=== PATIENT | female | born 1980 | race Caucasian/White ===

== ENCOUNTER 2023-01-16 02:21 | Day surgery (SDC) | payer OTHER, SELFPAY ==
[2023-01-09 11:56] VITALS: BMI 29.0
--- NOTE | 2023-01-09 12:00 | PC.NURSE ---
Report to the Outpatient Waiting Room, entrance under the green pavilion located off [facility], at time 1200 on date 01/16/23. Planned Procedure Time: 1400. Time changes happen often and if your time is changed the preop area will call you the afternoon before. - You and your visitor will be asked to self-screen and do not enter if you have any COVID symptoms. - A mask is optional within the hospital at this time. Patients may have clear liquids (water, carbonated beverages, clear teas, apple juice) until 3 hours prior to surgery with a maximum of 20 ounces. - No food from midnight until time of surgery Take the following medications with a SIP of water the morning of surgery: LEVOTHYROXINE, PROPRANOLOL DO NOT STOP ANY OF YOUR OTHER PRESCRIPTION MEDICATIONS PRIOR TO SURGERY ?EXCEPT THE FOLLOWING Medications to discontinue per physician: N/A Date to take last dose: N/A Please no make-up, nail mexican, hairspray, perfume, deodorant, or body powder the day of surgery. No jewelry (including any body piercings) or valuables the day of surgery, leave them at home. Please take a shower or bath the night before, or the morning of, surgery with an antibacterial soap. Wear comfortable, loose fitting clothing. - Jewelry must be removed prior to entering the operating room. Rings and piercings that are not removed may be cut off. - The hospital will not accept responsibility for valuables. - Please leave all valuables, including medications, at home the day of surgery. If you are going home after surgery, a licensed reefer truck driver must drive you home. - NO public transportation without another adult if you receive anesthesia. - We recommend that an adult stay with you for 24 hours following discharge. - We also recommend that you do not drive, make important decision, drink alcoholic beverages, or take any drugs that were not prescribed by your health care provider for at least 24 hours after your discharge time. Follow any additional instructions given to you from your surgeon. If you or anyone in your household have experienced Covid symptoms in the past week, please notify your surgeon or the nurse liaison at the phone number below for possible testing. Telephone instructions given to PT - CLARE ARRIETA and asked if any additional questions and then verbalized understanding. Patient advised to call surgeon office or pre surgery nurse liaison [phone] if any additional questions.
[2023-01-16 11:55] VITALS: BMI 29.1
[2023-01-16 12:05] VITALS: BP 129/79; PULSE 74; RESP 18; TEMP 36.6; O2SAT 100
[2023-01-16] MEDS: LACTATED RINGERS 1,000 ML 30 ML IV CONT (13:20)
[2023-01-16] MEDS: ACETAMINOPHEN 500 MG TABLET 1000 MG PO (13:26)
--- NOTE | 2023-01-16 13:28 | P.PNAN_ITS ---
Anes - Initial Pre Proc Eval Procedure: Operation Date: 01/16/23 14:00 Proposed Procedures p Hysteroscopy Dilation and Curettage Genoveva Endometrial Ablation - Yemi Bell MD Date/Time: 01/16/23 13:28 Surgeon: Yemi Bell MD Pre Op Diagnosis: excessive bleeding Patient Data Age: 42 Gender: F Height: 1.85 m Weight: 99.8 kg Allergies Allergy/AdvReac Type Severity Reaction Status Date / Time No Known Allergies Allergy Mild Verified 01/16/23 13:02 Home Medications Medication Instructions Recorded Confirmed Type levothyroxine 150 mcg tablet 150 mcg PO DAILY 01/09/23 01/09/23 History propranolol 60 mg capsule,24 60 mg PO DAILY 01/09/23 01/09/23 History hr,extended release Patient hx anesthesia problems: none Family hx anesthesia problems: none Results Review: All pre-operative results and documents have been reviewed as part of the pre- operative evaluation. PMFSH Past Medical History Medical History (Updated 01/16/23 @ 13:29 by Fransico Henderson DO) Hypothyroidism Surgical History Surgical History (Updated 01/16/23 @ 13:29 by Fransico Henderson DO) History of appendectomy History of tubal ligation Social History Social History Smoking status: Never smoker Alcohol intake: current Alcohol use details: 1/YEAR Substance use: never Substance use type: does not use Living arrangements: with family Spiritual care concerns: No Anes - Eval Final PreProcedure Day of Procedure 01/16/23 13:28 Patient weight: overweight Heart: regular rate and rhythm Lungs: clear to auscultation Airway: Mallampati scale class II Neurological: alert and oriented Last oral intake: >/= 8 hours ASA classification: II Emergent: no Anesthetic plan: proceed Anesthesia type and monitoring: general GIVS and standard monitoring Results Review: All pre-operative results and documents have been reviewed as part of the pre- operative evaluation. Informed Consent: The patient's anesthetic plan and its attendant risks and benefits were discussed with the patient/family/POA. Questions were solicited and answers provided to the satisfaction of the patient/family/POA.
--- NOTE | 2023-01-16 13:59 | PM.IMHP ---
H&P: HPI History of Present Illness Date/Time: 01/16/23 13:59 Chief Complaint: Heavy periods Narrative: 42 y/o who has had a tubal ligation. She has very heavy, painful, prolonged menses. Ultrasound exam shows an endometrial complex that is 1.4 cm thick. She is interested in surgical management of her problem. Review of Systems Review of Systems: All systems reviewed & are unremarkable except as noted in HPI and below PMFSH Past Medical History Medical History (Updated 01/16/23 @ 14:01 by Yemi Bell MD) Hypothyroidism Surgical History Surgical History History of appendectomy History of delivery History of tubal ligation Social History Social History Smoking status: Never smoker Alcohol intake: current Alcohol use details: 1/YEAR Substance use: never Substance use type: does not use Living arrangements: with family Spiritual care concerns: No Meds Home Medications and Allergies Home Medications Medication Instructions Recorded Confirmed Type levothyroxine 150 mcg tablet 150 mcg PO DAILY 01/09/23 01/09/23 History propranolol 60 mg capsule,24 60 mg PO DAILY 01/09/23 01/09/23 History hr,extended release Allergies Allergy/AdvReac Type Severity Reaction Status Date / Time No Known Allergies Allergy Mild Verified 01/16/23 13:02 Exam Const: Orientation/consciousness: patient oriented x3 Other: Well-developed, well-nourished female in no acute distress. Neck: Thyroid: thyroid normal Lymphatic: no lymphadenopathy noted (in neck, axilla or inguinal nodes) Resp: Effort & Inspection: normal respiratory effort Auscultation: clear to auscultation bilaterally Cardio: Rate: regular rate Rhythm: regular rhythm Heart sounds: S1 normal heart sound present and S2 normal heart sound present GI: Other: ABD: Soft, nontender, nondistended. No guarding or rebound tenderness. No hepatosplenomegaly. : General: Yes no CVA tenderness Other: External genitalia: normal female hair distribution, without lesion. Urethral meatus: no lesion, non prolapsed. Bladder: no mass, nontender Vagina: well-estrogenized, without lesion or discharge. No cystocele or rectocele. Cervix: no lesion or discharge. Uterus: small, anteverted, freely mobile, nontender Adnexa: no mass or tenderness. Anus/perineum: no lesions, nontender Back/Spine/Pelvis: Back: no CVA tenderness Skin: General skin exam: normal color and no rashes or lesions noted Neuro: General: patient oriented x3 Extrem: Other: Extremities: nontender with no edema Psych: Mental Status: mental status grossly normal Affect: normal affect Assessment and Plan Assessment and plan (1) Menometrorrhagia: Code(s): N92.1 - Excessive and frequent menstruation with irregular cycle Status: Acute Assessment and Plan: A: Menometrorrhagia with dysmenorrhea. P: We reviewed medical as well as surgical management options, and she prefers the latter. Specifically, I have offered her a hysteroscopy with dilation and sharp curettage and endometrial ablation. She understands risks of surgery to include risks of anesthesia, risks of pain, infection, bleeding, blood products, thromboembolic phenomena and damage to adjacent structures such as bowel, bladder, ureters, blood vessels and nerves. She understands all these risks and elects to proceed with surgery. (2) Dysmenorrhea: Code(s): N94.6 - Dysmenorrhea, unspecified Status: Acute
--- NOTE | 2023-01-16 14:03 | WPDHPUPDATE1 ---
History and Physical Update Update Date/Time: 01/16/23 14:03 History and Physical has been reviewed, including an updated exam of the patient. There are NO changes in the patient's condition. Risks, benefits, and alternatives have been discussed and questions answered. Patient agrees to proceed with procedure.
[2023-01-16] MEDS: LIDOCAINE HCL 1% LOCAL INJ 10 ML VIAL INFILTRATE (14:25)
[2023-01-16 14:48] VITALS: BP 104/67; PULSE 78; RESP 14; O2SAT 98
--- NOTE | 2023-01-16 14:55 | P.OP_ITS ---
Procedure Note - Detailed Date of Procedure 01/16/23 Pre-op Diagnosis Menometrorrhagia Dysmenorrhea Post-op Diagnosis Same Procedure Performed Hysteroscopy Dilation and sharp curettage Endometrial ablation Surgeon Yemi Bell MD Anesthesia MAC and Local (1% lidocaine) Findings Endometrial cavity unremarkable. Both tubal ostia seen. Description of Procedure The patient was taken to the operating room where she was prepared and draped in the usual sterile fashion in the dorsal lithotomy position. The bladder was drained with a red rubber catheter. A sterile speculum was placed into the vagina. The anterior lip of the cervix was grasped with single-tooth tenaculum. Ten mL of 1% lidocaine was administered in a paracervical block. The cervix was then gently dilated using Hegar dilators until a 7 mm dilator could be passed. Hysteroscopy was performed using sterile saline as a distention medium. Findings are as noted above. Sharp curettage was then performed, and endometrial curettings were collected on a Telfa pad and passed off to be sent t o pathology. Finally, the the Genoveva device was advanced and endometrial ablation commenced without difficulty. The device was withdrawn and a second look was taken using the hysteroscope. Excellent coverage of the endometrial cavity was noted. The tenaculum was removed. Hemostasis was excellent. Sponge, lap, needle and instrument counts were correct. The patient was awakened and taken to the recovery room in stable condition. I was present and scrubbed through the entire procedure. Estimated Blood Loss 10 Drains No Packing No Pathology Yes (Endometrial curettings) Complications None Condition Stable Disposition PACU
[2023-01-16 15:15] VITALS: BP 110/74; PULSE 54
[2023-01-16] MEDS: oxyCODONE HCL (*CRX) 5 MG TAB IR PO (15:27)
[2023-01-16 15:45] VITALS: BP 107/69; PULSE 56
== END 2023-01-16 16:00 | disposition home or self-care (01) ==
PROVIDERS: PCP Family Medicine; Visit Provider Obstetrics & Gynecology
PROC: 0U5B8ZZ Destruction of Endometrium, Via Natural or Artificial Opening Endoscopic (ICD-10-PCS; CPT 58563; principal; 2023-01-16 14:00)
DX: N92.0 Excessive and frequent menstruation with regular cycle (principal); E03.9 Hypothyroidism, unspecified
CPT/HCPCS: 58563; 88305; A9270; J2250; J2405; J2704; J3010; J7120

== ENCOUNTER → 2023-01-22 16:10 | Outpatient (CLI) | payer OTHER, SELFPAY ==
--- NOTE | ~2023-01-22 | MM_ITS ---
EXAMINATION: MM screening luis carlos BI w bar HISTORY: Screening mammogram TECHNIQUE: Craniocaudal and mediolateral oblique 3-D tomosynthesis images were obtained and synthetic 2-D images were generated. CAD analysis was submitted and interpreted. COMPARISON: No prior mammogram is available for comparison at this institution. BREAST PARENCHYMAL COMPOSITION:The breasts are heterogeneously dense, which may obscure small masses. FINDINGS: Small lymph node present in the posterior left breast. No suspicious mass, calcification, o r architectural distortion are identified in either breast to suggest malignancy. IMPRESSION: No mammographic evidence of malignancy. Recommend routine screening mammography in one year. BI-RADS Category 2: Benign finding(s). Reviewed, dictated and finalized at location . 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
== END ==
PROVIDERS: PCP Obstetrics & Gynecology; Visit Provider Obstetrics & Gynecology
DX: Z12.31 Encounter for screening mammogram for malignant neoplasm of breast (principal)
CPT/HCPCS: 77063; 77067

== ENCOUNTER 2024-01-28 16:08 | Outpatient (CLI) | payer OTHER, SELFPAY ==
--- NOTE | ~2024-01-28 | MM_ITS ---
EXAMINATION: MM screening luis carlos BI w bar HISTORY: Screening mammogram TECHNIQUE: Craniocaudal and mediolateral oblique 3-D tomosynthesis images were obtained and synthetic 2-D images were generated. CAD analysis was submitted and interpreted. COMPARISON: 01/22/2023 BREAST PARENCHYMAL COMPOSITION:Not Dense. There are scattered areas of fibroglandular density. FINDINGS: No suspicious mass, calcification, or architectural distortion are identified in either gaurang ast to suggest malignancy. There has been no suspicious interval change. IMPRESSION: No mammographic evidence of malignancy. Recommend routine screening mammography in one year. BI-RADS Category 1: Negative Reviewed, dictated and finalized at location . 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
== END 2024-01-28 16:09 | disposition home or self-care (01) ==
LOC: MICIMG 16:11
PROVIDERS: PCP Physician Assistant; Visit Provider Obstetrics & Gynecology
DX: Z12.31 Encounter for screening mammogram for malignant neoplasm of breast (principal)
CPT/HCPCS: 77063; 77067

== ENCOUNTER 2024-02-12 11:21 | Outpatient (CLI) | payer OTHER, SELFPAY ==
[2024-02-12 11:48] LABS: Basophils Absolute Auto 0.1 K/mm3 (0.0-0.1); Eosinophils Absolute Auto 0.4 K/mm3 (0-0.3); Eosinophils Percent Auto 5.1 % (0-4.4); Hemoglobin 14.2 g/dL (12.0-15.0); Immature Granulocyte Absolute 0.01 K/mm3 (0.00-0.031); Immature Granulocyte Percent A 0.1 % (0-0.5); Lymphocytes Absolute Auto 2.73 K/mm3 (0.9-3.2); Lymphocytes Percent Auto 33.5 % (18.3-44.2); Mean Corpuscular HGB Conc 32.3 g/dl (32-36); Mean Corpuscular Hemoglobin 30.2 pg (26-34); Mean Corpuscular Volume 93.6 fl (80-100); Mean Platelet Volume 9.5 fl (7.4-10.4); Monocytes Absolute Auto 0.8 K/mm3 (0.1-0.6); Monocytes Percent Auto 9.8 % (2.6-8.5); Neutrophils Absolute Auto 4.1 K/mm3 (1.3-6.7); Neutrophils Percent Auto 50.5 % (45.5-73.1); Platelet Count Result 493 k/mm3 (150-375); Red Cell Distribution Width 13.3 % (11.5-14.5); White Blood Count 8.2 K/mm3 (4.5-10.0)
[2024-02-12 15:08] LABS: Erythrocyte Sedimentation Rate 12 mm/hr (0-20)
[2024-02-12 16:35] LABS: Iron 153 ug/dL (37-170)
[2024-02-12 16:46] LABS: Percent Iron Saturation 46 % (20-50)
[2024-02-12 16:48] LABS: Alanine Aminotransferase 21 U/L (6-35); Albumin Level 4.7 g/dL (3.5-5.1); Alkaline Phosphatase 85 U/L (38-126); Anion Gap 9 mmol/L (4-12); Aspartate Amino Transferase 26 U/L (14-36); Bilirubin,Total 0.7 mg/dL (0.2-1.3); Blood Urea Nitrogen 9 mg/dL (7-17); CRP 0.5 mg/dL (<1.0); Calcium 9.3 mg/dL (8.4-10.2); Carbon Dioxide 25 mmol/L (22-30); Chloride 105 mmol/L (98-107); Estimated Glomerular Filt Rate > 60; Glucose 87 mg/dL (65-110); Potassium 4.8 mmol/L (3.4-5.0); Sodium 139 mmol/L (137-145)
== END 2024-02-12 11:22 | disposition home or self-care (01) ==
PROVIDERS: PCP Physician Assistant; Visit Provider Internal Medicine Hematology & Oncology
DX: D75.838 Other thrombocytosis (principal); D50.9 Iron deficiency anemia, unspecified
CPT/HCPCS: 36415; 80053; 82728; 83540; 83550; 85025; 85652; 86140

== ENCOUNTER 2024-05-28 10:37 | Outpatient (CLI) | payer OTHER, SELFPAY ==
[2024-05-28 10:49] LABS: Hematocrit 42.3 % (37.0-47.0); Hemoglobin 13.9 g/dL (12.0-15.0); Mean Corpuscular HGB Conc 32.9 g/dl (32-36); Mean Corpuscular Hemoglobin 30.7 pg (26-34); Mean Corpuscular Volume 93.4 fl (80-100); Mean Platelet Volume 10.2 fl (7.4-10.4); Platelet Count Result 469 k/mm3 (150-375); Red Blood Count 4.53 M/mm3 (4.2-5.4); Red Cell Distribution Width 13.5 % (11.5-14.5); White Blood Count 9.2 K/mm3 (4.5-10.0)
--- OUTSIDE RECORDS SUMMARY | 2024-05-28 12:21 | XMS_ITS | Encounter Summary ---
Author Organization [facility] Address [address] [place] [address] Care Team Providers Care Graduate Advisor Name Role Phone Unavailable Primary Care Provider Unavailabl e Encounter Details Date Type Department Care Team (Late st Contact Info) Description 05/26/2024 External Device Data ST[place] ABSTRACTION Provider, Abstract NO ADDRESS ON FILE Social History Tobacco Use Types Packs/Day Years Used Date Smoking Tobacco: Never Alcohol Use Standard Drinks/Week Comments Yes 0 (1 standard drink = 0.6 oz pur e alcohol) Occasionally Comments Unknown Sex and Gender Information Value Date Recorded Sex Assigned at Not on file Legal Sex Female 12:11 PM CDT Gender Identity Not on file Sexual Orientation Not on file documented as of this encounter Plan of Treatment Upcoming Encounters Date Type Department Care Team (Late st Contact Info) Description 09/30/2024 11:00 AM CDT Office Visit [facility] Oncology and Hematology - [place] [address] [place] [address] [facility] [address] [place] [address] Arian Hdz MD [address] [facility] [address] [place] [address] documented as of this encounter Visit Diagnoses Not on filedocumented in this encounter
--- OUTSIDE RECORDS SUMMARY | 2024-05-28 12:21 | XMS_ITS | Clinical Summary ---
Author Organization [facility] Address [address] [place] [address] Care Team Providers Care Presiding Steward Name Role Phone Unavailable Primary Care Provider Unavailabl e Source Comments [facility],non-owned Affiliates and Associated Physician Practices is amultiple site organization consisting of ambulatory clinics and hospital sitesin [place], [place], [place]. This disclosure is being madepursuant to the Care Everywhere program and may not contain all information available regarding this patient. Last updated 17.[facility] [employer] Dog Allergies No known active allergies Medications * Be aware that medications may not be up to date on this document. Alwaysverify current medications with the patient. Medication Sig Dispensed Refills Start Date End Date Status levothyroxine (SYNTHROID) 150 MCG tablet Take 150 mcg by mouth once daily 04/26/2020 Active Probiotic Product (PROBIOTIC DAILY PO) Acti ve Aspirin-Acetaminophe n-Caffeine (EXCEDRIN PO) Active omeprazole (PRILOSEC) 20 MG capsuleIndications:G astroesophageal reflux disease without esophagitis TAKE 1 CAPSULE BY MOUTH DAILY BEFORE BREAKFAST 90 capsule 3 10/18/2020 Active Active Problems Problem Noted Date Diagnosed Date Abdominal pain, epigastric 02/18/2010 Abdominal pain, generalized 02/18/2010 Family History Medical History Relation Name Comments Migraine Brother Cancer - Breast Paternal Grandmother Migraine Sister Relation Name Status Comments Brother Alive Paternal Grandmother Alive Sister Alive Social History Tobacco Use Types Packs/Day Years Used Date Smoking Tobacco: Never Smokeless Tobacco: Never Alcohol Use Standard Drinks/Week Comments Yes 0 (1 standard drink = 0.6 oz pur e alcohol) socially Sex and Gender Information Value Date Recorded Sex Assigned at Not on file Gender Identity Not on file Sexual Orientation Not on file Last Filed Vital Signs Vital Sign Reading Time Taken Comments Blood Pressure 123/80 07/13/2020 9:09 AM CDT Pulse 71 07/13/2020 9:09 AM CDT Temperature 36.5 C (97.7 F) 07/13/2020 9:09 AM CDT Respiratory Rate 13 06/08/2020 11:20 AM CDT Oxygen Saturation 100% 07/13/2020 9:09 AM CDT Inhaled Oxygen Concentration - - Weight 97.2 kg (214 lb 3.2 oz) 07/13/2020 9:09 A M CDT Height 185.4 cm (6' 1 ) 06/08/2020 9:05 AM CDT Body Mass Index 28.26 06/08/2020 9:05 AM CDT Plan of Treatment Health Maintenance Due Date Last Done Comments LIPID TESTING 1980 MAMMOGRAM 1980 PAP SMEAR 1980 HIV SCREENING 11/15/1994 HEPATITIS C SCREENING 11/11/1997 DTAP/TDAP/TD VACCINES (1 - Tdap) 11/15/1998 HEPATITIS B VACCINE (1 of 3 - 19+ 3-dose series) 11/15/1998 SCREENING FOR DIABETES 07/13/2020 02/18/2010 COVID-19 VACCINE (1 - 2023-2 5 season) 2023 INFLUENZA VACCINE (#1) 2023 DEPRESSION SCREENING 03/18/2024 ZOSTER VACCINE (1 of 2) 11/15/2029 HIB VACCINE Aged Out No longer eligi ble based on patient's age to complete this topic HPV VACCINE Aged Out No longer eligi ble based on patient's age to complete this topic MENINGOCOCCAL (Group B) VACC INE SHARED DECISION-MAKING Aged Out No longer eligibl e based on patient's age to complete this topic MENINGOCOCCAL GROUPS A/C/Y/W VACCINE Aged Out No longer eligible b ased on patient's age to complete this topic PNEUMOCOCCAL VACCINE Aged Out No long er eligible based on patient's age to complete this topic Procedures Procedure Name Priority Date/Time Associated Diagnosis Comments COMPREHENSIVE METABOLIC PANEL STAT 02/18/2010 8:10 PM REED OR WIND INSTRUMENT REPAIRER from Last 3 Months or Most Recently Relevant to Health Maintenance Results * (ABNORMAL) COMPREHENSIVE METABOLIC PANEL (02/18/2010 8:10 PM REED OR WIND INSTRUMENT REPAIRER) Glucose 99. 65 - 105 mg/dL [facility] BUN 6.(L) 7 - 18 mg/dL [facility] Creatinine .66 0.50 - 1.05 mg/dL [facility] BUN/Creatinine Ratio 8.7 [facility] Sodium 135.(L) 137 - 145 mmol/L [facility] Potassium 3.5(L) 3.6 - 5.0 mmol/L [facility] Chloride 103. 98 - 107 mmol/L [facility] CO2 22. 22 - 31 mmol/L [facility] Anion Gap 10. [facility] Calcium 8.7 8.4 - 10.6 mg/dL [facility] Alkaline Phosphatase 60. 38 - 126 U/L [facility] ALT 13. 7 - 56 U/L [facility] AST 24. 5 - 40 U/L [facility] Bilirubin Total < .1(L) 0.2 - 1.3 mg/dL [facility] Protein Total 7.7 6.3 - 8.2 gm/dL [facility] Albumin 4.2 3.9 - 5.0 gm/dL [facility] eGFR by MDRD >60 SEE BELOW ml/min/1.7 3 m2 [facility] Comment: >60 Normal Chronic Disease <60 Renal Failure <15 BLOOD SPECIMEN / Unknown 02/18/2010 8:10 PM REED OR WIND INSTRUMENT REPAIRER 02/18/2010 8:16 PM REED OR WIND INSTRUMENT REPAIRER Narrative [facility] - 02/18/2010 8:41 PM REED OR WIND INSTRUMENT REPAIRER Perform for patients with UPPER abd* Fernie Josie Solares MD LAB - CHEMISTRY [facility] [address] [place] [address] from Last 3 Months or Most Recently Relevant to Health Maintenance Clare Stephenson Personal/Family Self 1980 [address] [phone] CLARE STEPHENSON Personal/Family Spouse [address] [phone]
--- OUTSIDE RECORDS SUMMARY | 2024-05-28 12:21 | XMS_ITS | Clinical Summary ---
Author Organization [facility] Address [address] [place] [address] Care Team Providers Care Compensation Director Name Role Phone Ta Piedra MD Unavailable [phone] Leila Tam MD Primary Care Provider Yemi Bell MD Unavailable [phone] Allergies Active Allergy Reactions Criticality Noted Date Comments Tolterodine Other (See comments) Low 10/22/2022 Severe dry eye Medications mirabegron ER (MYRBETRIQ) 25 mg tablet extended release 24 hrIndications:OA B (overactive bladder) Take 1 tablet (25 mg total) by mouth daily 90 tablet 3 3 Active Additional Information Patient not taking.Reported on 04/10/2024 propranolol LA (INDERAL LA) 60 mg 24 hr capsuleIndicatio ns:Chronic daily headache,Migrain e without aura and without status migrainosus, not intractable Take 1 capsule (60 mg total) by mouth daily 90 capsule 4 3 Active Additional Information Patient not taking.Reported on 04/10/2024 levothyroxine (SYNTHROID) 150 mcg tabletIndication s:Hypothyroidism (acquired) TAKE 1 TABLET( 150 MCG TOTAL) BY MOUTH SCREED OPERATOR BEFORE BREAKFAST 90 tablet 1 4 Active Active Problems Problem Noted Date Diagnosed Date Family hx of colon cancer 10/23/2023 OAB (overactive bladder) 10/23/2023 Assessment & Plan (10/23/2023 3:07 PM CDT): Improved with Myrbetriq. Continue Class 1 obesity due to exces s calories without serious comorbidity with body mass index (BMI) of 30.0 to 30.9 in adult 10/23/2023 Assessment & Plan (10/23/2023 3:08 PM CDT): Intermittent with borderline BMI between overweight and mild obesity. Needs slight improvement. Encouraged healthy diet, exercise, weight loss. Chronic daily headache 10/22/2022 Overview (10/22/2022): Improved with propranolol started last year. Refill given. Discussed option for abortive if needed for migraines but she defers. Monitor Assessment & Plan (10/23/2023 3:07 PM CDT): Chronic. Controlled with propranolol. Continue. She noted when attempted to wean off of the headaches flared Sensorineural hearing loss ( SNHL) of right ear with restricted hearing of left ear 05/19/2019 Overview (10/02/2021): Mild bilaterally. Prior ENT evaluation Assessment & Plan (05/25/2019 9:53 AM CDT): Repeat audio here today shows right greater than left mild mixed hearing loss- predominantly sensorineural. Her stapedial reflexes were intact. I discussed with her that amplification will be her best solution for hearing improvement. She will follwoup with Dr. Piedra's office for a hearing aid consult. Hypothyroidism (acquired) 10/08/2016 Assessment & Plan (10/23/2023 3:07 PM CDT): Chronic. Clinically euthyroid. Continue levothyroxine. Check TSH and adjust as needed Encounters Date Type Department Care Team Description 04/10/2024 4:53 PM ARCHIVIST MILITARY HISTORY - 04/10/2024 11:59 PM ARCHIVIST MILITARY HISTORY Hospital Encounter [address] [address] Acute pharyngitis, unspecified etiology Discharge Disposition: Discharge to home or self care 04/10/2024 4:15 PM ARCHIVIST MILITARY HISTORY Office Visit [facility] at [address] [address] Geoff Hammond NP Acute pharyngitis, unspecified etiology (Primary Dx); Right ear pain from Last 3 Months Immunizations Immunization Administration Dates Next Due Influenza, Quadrivalent, Spl it, Preservative Free, Intramuscular 12/27/2018 Influenza, Trivalent, Preser vative Free, Intramuscular 01/07/2017,01/05/2016,12/30/2014 Influenza, Unspecified 03/18/2023(Deferr ed: Patient Refused),03/18/2022(Deferred: Patient Refused) Tdap 04/13/2016 Surgical History Surgery Date Site/Laterality Comments SECTION TUBAL LIGATION EYE SURGERY Bilateral PRK APPENDECTOMY 03/18/2018 - 03/17/2019 Medical History Medical History Date Comments Thyroid disease Crohn disease (HCC) Narcolepsy Chickenpox Family History Medical History Relation Name Comments Diabetes Brother Diabetes Father Colon cancer Mother Diabetes Mother Hypertension Mother Breast cancer Paternal Grandmother Diabetes Sister Relation Name Status Comments Brother Father Alive Mother Alive Paternal Grandmother Sister Social History Tobacco Use Types Packs/Day Years Used Date Smoking Tobacco: Never Smokeless Tobacco: Never Tobacco Cessation:Counseling Given: Not Answered Alcohol Use Standard Drinks/Week Comments Never 0 (1 standard drink = 0.6 oz pur e alcohol) AUDIT-C Answer Date Recorded Q1: How often do you have a drink containing alcohol? Never 10/23/2023 Q2: How many drinks containi ng alcohol do you have on a typical day when you are drinking? Patient does not drink Q3: How often do you have si x or more drinks on one occasion? Never 10/23/2023 PHQ-2 Answer Date Recorded PHQ-2 Total Score (If total score is 3 or more points, staff should administer the PHQ-9) 0 10/23/2023 Comments No Sex and Gender Information Value Date Recorded Sex Assigned at Not on file Legal Sex Female 6:19 PM ARCHIVIST MILITARY HISTORY Gender Identity Not on file Sexual Orientation Not on file Obstetrics History Last Filed Vital Signs Vital Sign Reading Time Taken Comments Blood Pressure 120/80 04/10/2024 4:17 PM ARCHIVIST MILITARY HISTORY Pulse 80 04/10/2024 4:17 PM ARCHIVIST MILITARY HISTORY Temperature 36.7 C (98.1 F) 04/10/2024 4:17 PM ARCHIVIST MILITARY HISTORY Respiratory Rate 18 04/10/2024 4:17 PM ARCHIVIST MILITARY HISTORY Oxygen Saturation 98% 04/10/2024 4:17 PM ARCHIVIST MILITARY HISTORY Inhaled Oxygen Concentration - - Weight 102.1 kg (225 lb) 04/10/2024 4:17 PM ARCHIVIST MILITARY HISTORY Height 185.4 cm (6' 1 ) 02/01/2024 8:54 AM ARCHIVIST MILITARY HISTORY Body Mass Index 29.69 02/01/2024 8:54 AM ARCHIVIST MILITARY HISTORY Plan of Treatment Health Maintenance Due Date Last Done Comments Breast Cancer Screening-Mammogram 1980 Cervical Cancer Screening 1980 Covid-19 Vaccine ( season) 2023 04/01/2021, 07/19/2020, 06/15/2020 Influenza Vaccine (#1) 2023 9, 01/07/2017, 01/05/2016, Additional history exists Depression Screening 10/22/2024 10/23/2023, 10/22/2022, 10/02/2021, Additional history exists Regular Well Visit/Exam 18-64 10/22/2024 10/23/2023, 10/22/2022, 10/02/2021 Colon Cancer Screening-Colonoscopy 06/09/2025 06/09/2020 DTaP/Tdap/Td Vaccine (2 - Td or Tdap) 04/13/2026 04/13/2016 Hepatitis B Screening Completed 10/24/2023 Hepatitis C Screening Completed 10/24/2023 HPV Vaccines Aged Out No longer eligi ble based on patient's age to complete this topic Pneumococcal vaccine <65 Aged Out No longer eligible based on patient's age to complete this topic Procedures Procedure Name Priority Date/Time Associated Diagnosis Comments THROAT CULTURE Routine 04/10/2024 4:53 PM ARCHIVIST MILITARY HISTORY Acute pharyngitis, unspecified etiology POCT RAPID STREP Routine 04/10/2024 4:42 PM ARCHIVIST MILITARY HISTORY Acute pharyngitis, unspecified etiology HEPATITIS C ANTIBODY Routine 10/24/2023 9:09 AM CDT Annual physical exam Encounter for hepatitis C screening test for low risk patient HM COLONOSCOPY Routine 06/09/2020 Routine physical examination from Last 3 Months or Most Recently Relevant to Health Maintenance Results * Throat culture Throat (04/10/2024 4:53 PM ARCHIVIST MILITARY HISTORY) [facility] Report Final Report: No growth of pathogens. Comment:Testing performed by : [facility], [address] [place]., [address] Throat 04/10/2024 4:53 PM ARCHIVIST MILITARY HISTORY 04/11/2024 1:55 AM ARCHIVIST MILITARY HISTORY Narrative DEYANIRA - 04/12/2024 7:11 AM ARCHIVIST MILITARY HISTORY Testing performed by [facility] Microbiology Laboratory ([phone]). us Geoff Hammond NP LAB MICROBIOLOGY - [facility] Final Result [facility] [address] [address] Department of Laboratories [place], [place] [id number] * POCT rapid strep A (04/10/2024 4:42 PM ARCHIVIST MILITARY HISTORY) [facility] Rapid Strep A, POC Negative Negative Swab 04/10/2024 4:42 PM ARCHIVIST MILITARY HISTORY us Geoff Hammond NP POINT OF CARE TEST ORDERABLES F inal Result * Hepatitis C antibody Blood (10/24/2023 9:09 AM CDT) [facility] Hep C Ab NON-REACTI VE NON-REACT CATHI [facility] Comment: HCV antibody was non-reactive. There is no laboratory evidence of HCV infection. In most cases, no further action is required. However, if recent HCV exposure is suspected, a test for HCV RNA (test code 19401) is suggested. For additional information please refer to http://education.PayDragon/faq/GNM17w2 (This link is being provided for informational/ educational purposes only.) Blood 10/24/2023 9:09 AM CDT 10/24/2023 9:10 AM CDT Narrative [facility] - 10/25/2023 7:48 AM CDT FASTING:YES FASTING: YES Leila Tam MD LAB MICROBIOLOGY - GEN ERAL ORDERABLES Final Result [facility] [address] [id number] * COLONOSCOPY (06/09/2020) Scribed Colonoscopy Abnormal Comment:see pathology and co lonoscopy reprot in [facility] Historical Provider HEALTH MAINTENANCE Final Result from Last 3 Months or Most Recently Relevant to Health Maintenance Insurance [facility] Care Teams Compensation Director Relationship Specialty Start Date End Date Leila Tam MD [address] [place], [place] [id number] PCP - General Family Practice 09/21/21 Ta Piedra MD [address] [place] [address] Referring Physician Otolaryngology 04/29/19 Yemi Bell MD [address] [address] Referring Physician Obstetrics and Gynecology 10/23/23
--- OUTSIDE RECORDS SUMMARY | 2024-05-28 12:21 | XMS_ITS | Referral Summary ---
Author Organization [facility] Address [address] [place] [address] Care Team Providers Care Ui Lead Developer Name Role Phone Unavailable Primary Care Provider Unavailabl e Source Comments [facility],non-owned Affiliates and Associated Physician Practices is amultiple site organization consisting of ambulatory clinics and hospital sitesin [place], [place], [place] and [place]. This disclosure is being madepursuant to the Care Everywhere program and may not contain all information available regarding this patient. Last updated 17.[facility] [email or web address] Allergies No known active allergies Medications * [...] pain, epigastric 02/18/2010 Abdominal pain, generalized 02/18/2010 Social History Tobacco Use Types Packs/Day Years [...] 06/08/2020 9:05 AM CDT Plan of Treatment Not on file Procedures Procedure Name Priority Date/Time Associated Diagnosis Comments COMPREHENSIVE METABOLIC PANEL STAT 02/18/2010 8:10 PM ENTRY LEVEL BUYER from Last 3 Months or Most Recently Relevant to Health Maintenance Results * (ABNORMAL) COMPREHENSIVE METABOLIC PANEL (02/18/2010 8:10 PM ENTRY LEVEL BUYER) Glucose 99. 65 - 105 mg/dL [facility] BUN 6.(L) 7 - 18 mg/dL [facility] Creatinine .66 0.50 - 1.05 mg/dL [facility] BUN/Creatinine Ratio 8.7 [facility] Sodium 135.(L) 137 - 145 mmol/L [facility] Potassium 3.5(L) 3.6 - 5.0 mmol/L [facility] Chloride 103. 98 - 107 mmol/L [facility] CO2 22. 22 - 31 mmol/L [facility] Anion Gap 10. [facility] Calcium 8.7 8.4 - 10.6 mg/dL [facility] Alkaline Phosphatase 60. 38 - 126 U/L [facility] ALT 13. 7 - 56 U/L [facility] AST 24. 5 - 40 U/L [facility] Bilirubin Total < .1(L) 0.2 - 1.3 mg/dL [facility] Protein Total 7.7 6.3 - 8.2 gm/dL [facility] Albumin 4.2 3.9 - 5.0 gm/dL [facility] eGFR by MDRD >60 SEE BELOW ml/min/1.7 3 m2 [facility] Comment: >60 Normal Chronic Disease <60 Renal Failure <15 BLOOD SPECIMEN / Unknown 02/18/2010 8:10 PM ENTRY LEVEL BUYER 02/18/2010 8:16 PM ENTRY LEVEL BUYER Narrative [facility] - 02/18/2010 8:41 PM ENTRY LEVEL BUYER Perform for patients with UPPER abd* Fernie Solares MD LAB - CHEMISTRY [place] [facility] [address] [place] [address] from Last 3 Months or Most Recently Relevant to Health Maintenance Clare Stephenson Personal/Family Self 1980 [address] [place] [address] CLARE STEPHENSON Personal/Family Spouse [address] [place] [address]
--- OUTSIDE RECORDS SUMMARY | 2024-05-28 12:21 | XMS_ITS | Encounter Summary ---
Author Organization [email or web address] Address [address] [place] [address] Care Team Providers Care Scratcher Tender Name Role Phone Unavailable Primary Care Provider [...] Description 09/30/2024 11:00 AM CDT Office Visit [facility] Oncology and Hematology - [place] [address] [place] [address] [facility] [address] [place] [address] Arian Hdz MD [address] [facility] [address] [place] [address] documented as of this encounter Visit Diagnoses Not on filedocumented in this encounter
--- OUTSIDE RECORDS SUMMARY | 2024-05-28 12:21 | XMS_ITS | Encounter Summary ---
Author Organization [facility] Address [address] [place] [place] [address] Care Team Providers Care Manager Technology Name Role Phone Unavailable Primary Care Provider Unavailabl e Reason for Visit * Reason Onset Date Comments Returned Call 06/29/2020 Encounter Details Date Type Department Care Team (Late st Contact Info) Description 06/29/2020 Telephone [facility] - GI [address] [place] [address], [place] [address] Arabella Castillo MD [address] [place] [address] [place] [address] Returned Call Social History Tobacco Use Types Packs/Day Years Used Date Smoking Tobacco: Never Smokeless Tobacco: Never Alcohol Use Standard Drinks/Week Comments Yes 0 (1 standard drink = 0.6 oz pur e alcohol) socially Sex and Gender Information Value Date Recorded Sex Assigned at Not on file Gender Identity Not on file Sexual Orientation Not on file documented as of this encounter Miscellaneous Notes * Telephone Encounter - Arabella Craig MD - 06/29/2020 5:06 PM CDT Called patient to review colonoscopy findings. Reviewed finding of mild ileitis on colonoscopy. She was told many years ago that she has Crohn's disease- but she has always been skeptical of the diagnosis because she did not have typical symptoms. We reviewed the differential diagnosis of mild ileitis. She does take Excedrin daily for headaches. We also discussed that her rectal bleeding is likely due to her hemorrhoids. She is quite symptomatic and colonoscopy revealed a large thrombosed external hemorrhoid. She has consultation with Dr. Petty 07/13. She will discuss the above information with her and consider colorectal surgery consult for her hemorrhoids. Patient voiced no further questions at this time. Arabella Craig MD Wound Specialist Internal Medicine Division of Gastroenterology and Hepatology documented in this encounter Plan of Treatment Not on file documented as of this encounter Visit Diagnoses Not on filedocumented in this encounter
--- OUTSIDE RECORDS SUMMARY | 2024-05-28 12:21 | XMS_ITS | Patient Health Summary ---
Author Organization [facility] Address [address] [place] [address] Care Team Providers Care Integration Architect Name Role Phone Unavailable Primary Care Provider Unavailabl e Note from [facility],non-owned Affiliates and Associated Physician Practices is amultiple site organization consisting of ambulatory clinics and hospital sitesin [place], [place], [place] and [place]. This disclosure is being madepursuant to the Care Everywhere program and may not contain all information available regarding this patient. Last updated 17.[facility] Allergies No known active allergies Medications * Be aware that medications may not be up to date on this document. Alwaysverify current medications with the patient. * levothyroxine (SYNTHROID) 150 MCG tablet(Started 04/26/2020) Take 150 mcg by mouth once daily * Probiotic Product (PROBIOTIC DAILY PO) * Mvrivqr-Lpxnrevxxwuup-Irabvcpm (EXCEDRIN PO) * omeprazole (PRILOSEC) 20 MG capsule(Started 10/18/2020) TAKE 1 CAPSULE BY MOUTH DAILY BEFORE BREAKFAST 3 refills by 10/18/2021 Active Problems Problem Noted Date Diagnosed Date [...] Mass Index 28.26 06/08/2020 9:05 AM CDT Procedures * PATHOLOGY TISSUE(Performed 06/08/2020) Performed for Crohn's disease of colon without complication (HCC) * MO COLONOSCOPY, DIAGNOSTIC(Performed 06/08/2020) Performed for Crohn's disease of colon without complication (HCC) * ENDOSCOPY, COLON, DIAGNOSTIC(Performed 06/08/2020) * HCG URINE QUALITATIVE - POCT (IP) INTERFACED(Performed 06/08/2020) * HCG URINE QUAL POCT NOTIFICATION(Performed 06/08/2020) Performed for Preop examination * CT ABDOMEN PELVIS W CONTRAST(Performed 02/18/2010) Performed for Abdominal pain, epigastric, Abdominal pain, generalized * HCG URINE QUALITATIVE - POINT OF CARE(Performed 02/18/2010) * LIPASE BLOOD(Performed 02/18/2010) * COMPREHENSIVE METABOLIC PANEL(Performed 02/18/2010) * CBC W AUTO DIFFERENTIAL(Performed 02/18/2010) * URINALYSIS REFLEX MICROSCOPIC REFLEX CULTURE(Performed 02/18/2010) Results * PATHOLOGY TISSUE (06/08/2020 10:26 AM CDT) Case Report Surgical Pathology Report Case: [id number] Authorizing Provider: Arabella Gillette MD Collected: 06/08/2020 10:26 AM Ordering Location: [facility] Received: 06/08/2020 11:34 AM Pathologist: Caryn Engle MD Specimens: A) - Colon, terminal illeum ulceration B) - Large Intestine, Right/Ascending Colon, right colon random bx C) - Large Intestine, Transverse Colon, Transverse - edemastous area bx D) - Large Intestine, Left/Descending Colon, left colon random bx E) - Large Intestine, Left/Descending Colon, descending poylp 06/09/2020 9:20 PM [facility] Final Diagnosis Small intestine, terminal ileum ulceration, biopsy (A): - Mild aphthous inflammation - No granulomas or dysplasia Large intestine, right colon random, biopsy (B): - Melanosis coli - No granulomas or dysplasia Large intestine, transverse edematous area, biopsy (C): - Melanosis coli - No granulomas or dysplasia Large intestine, left colon random, biopsy (D): - Melanosis coli - No granulomas or dysplasia Large intestine, descending polyp, biopsy (E): - Benign polypoid mucosa 06/09/2020 9:20 PM [facility] Microscopic Description and Comment Microscopic examination substantiates the final diagnosis. 06/09/2020 9:20 PM [facility] Clinical History The patient is a 39-year-old woman with Crohn's disease, previously in admission, who has abdominal pain and bloody stools. Operative procedure/findings: colonoscopy showed 3 aphthous ulcers in the terminal ileum and one 3 mm descending colon polyp. The entire examined colon was otherwise endoscopically normal. Non-bleeding external and internal hemorrhoids were noted. 06/09/2020 9:20 PM [facility] Gross Description The requisition and specimen(s) are labeled with the patient's name, Navya Stephenson. Received in formalin, specimen A , are 2 pink-munoz tissue fragments measuring 0.3 x 0.2 x 0.1 cm and 0.3 x 0.3 x 0.2 cm. The specimen is submitted in toto in cassette A1. Received in formalin, specimen B , are 3 yellow-munoz tissue fragments measuring 0.2-0.4 cm in greatest dimension and 0.6 x 0.4 x 0.1 cm in aggregate. The specimen is submitted in toto in cassette B1. Received in formalin, specimen C , are 2 pink-munoz tissue fragments measuring 0.3 x 0.2 x 0.1 cm in 0.5 x 0.2 x 0.1 cm. The specimen is submitted in toto in cassette C1. Received in formalin, specimen D , are 4 pink-munoz tissue fragments measuring 0.3-0.5 cm in greatest dimension and 0.5 x 0.5 x 0.1 cm in aggregate. The specimen is submitted in toto in cassette D1. Received in formalin, specimen E , is a pink-munoz tissue fragment measuring 0.2 x 0.2 x 0.1 cm. The specimen is submitted in toto in cassette E1. OW 06/09/2020 9:20 PM [facility] Disclaimer The performance characteristics of all immunohistochemical and indirect immunofluorescence stains (if any) cited in this report were determined by the Histopathology Laboratory of [facility]. Some of these tests were developed by our own laboratory and have not been cleared or approved by the US Food and Drug Administration. The FDA does not require this test to go through premarket FDA review. These tests are used for clinical purposes. They should not be regarded as investigational or for research. This laboratory is certified under the Clinical Laboratory Improvement Amendments (CLIA) as qualified to perform high complexity clinical laboratory testing. This case has been personally reviewed and interpreted by the attending (teaching) pathologist. 06/09/2020 9:20 PM [facility] Embedded Images 06/09/2020 9:20 PM [facility] Biopsy, NOS COLON PART / Unknown 06/08/2020 10:26 AM CDT 06/08/2020 11:34 AM CDT Comment:Pre-op diagnosis: Crohn's disease of colon without complication [K50.10] Biopsy, NOS (Large Intestine, Right/Ascending Colon) 06/08/2020 10:31 AM CDT 06/08/2020 11:34 AM CDT Comment:Pre-op diagnosis: Crohn's disease of colon without complication [K50.10] Biopsy, NOS (Large Intestine, Transverse Colon) 06/08/2020 10:37 AM CDT 06/08/2020 11:34 AM CDT Comment:Pre-op diagnosis: Crohn's disease of colon without complication [K50.10] Biopsy, NOS (Large Intestine, Left/Descending Colon) 06/08/2020 10:40 AM CDT 06/08/2020 11:34 AM CDT Comment:Pre-op diagnosis: Crohn's disease of colon without complication [K50.10] Biopsy, NOS (Large Intestine, Left/Descending Colon) 06/08/2020 10:44 AM CDT 06/08/2020 11:34 AM CDT Comment:Pre-op diagnosis: Crohn's disease of colon without complication [K50.10] Arabella Castillo MD LAB - PATHOLOGY/C YTOLOGY ORDERABLES Performing Organization Address City/State/[facility] Co de Phone Number [facility] [address] [phone] * ENDOSCOPY, COLON, DIAGNOSTIC (06/08/2020 10:00 AM CDT) Report Endoscopy POC Endoscopy Department Report _ Patient Name: Navya Stephenson Procedure Date: 06/08/2020 10:00 AM Date of : 1980 Classification: Outpatient Gender: Female Ethnicity: Not or Race: White _ Providers: Arabella Gillette MD, Kishan Gallardo (Fellow) Referring MD: Procedure: Colonoscopy Indications: Suspected Crohn's disease of the small bowel, Incidental abdominal pain and constipation noted. Currently not on Crohn's medical therapy. Medications: Monitored Anesthesia Care Description of Procedure: Pre-Anesthesia Assessment: - Prior to the procedure, a History and Physical was performed, and patient medications and allergies were reviewed. The patient's tolerance of previous anesthesia was also reviewed. The risks and benefits of the procedure and the sedation options and risks were discussed with the patient. All questions were answered, and informed consent was obtained. Prior Anticoagulants: The patient has taken no previous anticoagulant or antiplatelet agents. ASA Grade Assessment: II - A patient with mild systemic disease. After reviewing the risks and benefits, the patient was deemed in satisfactory condition to undergo the procedure. After I obtained informed consent, the scope was passed under direct vision. Throughout the procedure, the patient's blood pressure, pulse, and oxygen saturations were monitored continuously. The PCF-[id number] was introduced through the anus and advanced to the terminal ileum, with identification of the appendiceal orifice and IC valve. The colonoscopy was performed without difficulty. The patient tolerated the procedure well. The quality of the bowel preparation was evaluated using the BBPS ([place] Bowel Preparation Scale) with scores of: Right Colon = 2 (minor amount of residual staining, small fragments of stool and/or opaque liquid, but mucosa seen well), Transverse Colon = 2 (minor amount of residual staining, small fragments of stool and/or opaque liquid, but mucosa seen well) and Left Colon = 3 (entire mucosa seen well with no residual staining, small fragments of stool or opaque liquid). The total BBPS score equals 7. The quality of the bowel preparation was good. The terminal ileum, ileocecal valve, appendiceal orifice, and rectum were photographed. Findings: Hemorrhoids were found on perianal exam. One larger thrombosed hemorrhoid was noted. The colon (entire examined portion) appeared normal. Biopsies were taken with a cold forceps for histology from right and left colon. A 3 mm polyp was found in the descending colon. The polyp was sessile. The polyp was removed with a jumbo cold forceps. Resection and retrieval were complete. The terminal ileum contained three superficial non-bleeding aphthous ulcers near the opening to the TI. Examined the terminal ileum for about 15 cm proximally, which appeared to be normal otherwise. Biopsies were taken with a cold forceps for histology from the ulcers. Non-bleeding external and internal hemorrhoids were found during retroflexion. The hemorrhoids were large. Estimated Blood Loss: Estimated blood loss: none. Complications: No immediate complications. Impression: - External hemorrhoids found on perianal exam. - The entire examined colon is normal. Biopsied. - One 3 mm polyp in the descending colon, removed with a jumbo cold forceps. Resected and retrieved. - Three aphthous ulcers in the terminal ileum. Biopsied. - Non-bleeding external internal hemorrhoids. Recommendation: - Discharge patient to home (ambulatory). - Resume previous diet. - Continue present medications. - Depending on symptoms, would treat constipation. - Await pathology results. - Consultation in GI office as previously scheduled. - Will refer patient for colorectal surgery to assess for treatment of the hemorrhoids. Attending Participation: I was present and participated during the entire procedure, including non-roach portions. Procedure Code(s): --- Professional --- 31423, Colonoscopy, flexible; with biopsy, single or multiple Diagnosis Code(s): --- Professional --- K64.4, Residual hemorrhoidal skin tags K64.8, Other hemorrhoids K63.5, Polyp of colon K63.89, Other specified diseases of intestine CPT copyright 2019 [employer]. All rights reserved. The codes documented in this report are preliminary and upon pest control pilot review may be revised to meet current compliance requirements. ____ Arabella Gillette MD 06/08/2020 11:12:07 AM Note Initiated On: 06/08/2020 10:00 AM Number of Addenda: [id number] [place] [address] 06/08/2020 10:0 0 AM CDT Arabella Castillo MD GI [facility]ED[facility] * HCG URINE QUALITATIVE - POCT (IP) INTERFACED (06/08/2020 9:10 AM CDT) HCG Qual Urine Negative Negative 06/08/2020 9:17 AM CDT [facility] Urine URINE / Unknown 06/08/2020 9 :10 AM CDT 06/08/2020 9:17 AM CDT Arabella Castillo MD LAB - POINT OF CA RE ORDERABLES Performing Organization Address City/[facility]/ZIP Co de Phone Number [address] [phone], [facility] [phone] * HCG URINE QUAL POCT NOTIFICATION (06/08/2020 9:05 AM CDT) Comment Notification Label Only - See Separate Report 06/08/2020 10:30 AM CDT [facility] Urine URINE / Unknown 06/08/2020 9 :05 AM CDT 06/08/2020 9:05 AM CDT Arabella Castillo MD LAB - URINALYSIS ORDERABLES Performing Organization Address [facility] Co de Phone Number [address] [phone], [facility] [phone] * CT ABDOMEN AND PELVIS WITH IV CONTRAST (02/18/2010 10:43 PM [employer] SERVICE WORKER) Anatomical Region Laterality Modality Abdomen, Pelvis Computed Tomogra phy 02/19/2010 9:59 AM [employer] SERVICE WORKER Narrative 02/19/2010 9:59 AM [employer]ER CT abdomen and pelvis with oral and IV contrast on February 18, 2010 INDICATION: Abdominal pain A breast shield is used in this exam showing no defect in the liver. There is no apparent splenic tissue identified in the study. There is uniform enhancement of the pancreas without a mass is no retrocrural para-aortic adenopathy the contrast outline kidneys show smooth margins without obstructive findings. There are no intrarenal calculi the small bowel loops reveal no abnormal wall thickness or dilatation. Images of the pelvis reveal less than 30 mL of fluid in the cul-de-sac pelvic adenopathy is not present. The patient's appendix is visualized on image 75 and 74 in this series showing no inflammatory changes. SUMMARY: Apparent asplenia No inflammatory changes of the appendix. Procedure Note James Curran MD - 02/19/2010 CT abdomen and pelvis with oral and IV contrast on February 18, 2010 INDICATION: Abdominal pain A breast shield is used in this exam showing no defect in the liver. There is no apparent splenic tissue identified in the study. There is uniform enhancement of the pancreas without a mass is no retrocrural para-aortic adenopathy the contrast outline kidneys show smooth margins without obstructive findings. There are no intrarenal calculi the small bowel loops reveal no abnormal wall thickness or dilatation. Images of the pelvis reveal less than 30 mL of fluid in the cul-de-sac pelvic adenopathy is not present. The patient's appendix is visualized on image 75 and 74 in this series showing no inflammatory changes. SUMMARY: Apparent asplenia No inflammatory changes of the appendix. Raimundo Martin MD CT ORDERABLES * HCG URINE QUALITATIVE - POINT OF CARE (02/18/2010 8:13 PM [employer]LOOR SERVICE WORKER) HCG Qual Urine neg Negative [facility] POCT TESTING QC Verified yes Yes [facility] POC T TESTING Urine specimen (specimen) URINE / Unknown 02/18/2010 8:13 PM [employer] SERVICE WORKER Fernie Solares MD LAB - POINT OF CARE ORDERABLES [facility] POCT TESTING [address] [place] [address] * CBC W AUTO DIFFERENTIAL (02/18/2010 8:10 PM [employer] SERVICE WORKER) WBC 7.2 4.0 - 11.0 K/CUMM [facility] RBC 4.42 3.80 - 5.30 M/CUMM [facility] Hemoglobin 13.5 11.7 - 15.5 gm/dL [facility] Hematocrit 40.4 36 - 46 % [facility] MCV 91.4 80 - 99 fL [facility] MCH 30.5 26 - 34 pg [facility] MCHC 33.4 32 - 36 gm/dL [facility] RDW 12.9 11.5 - 14.5 % [facility] Platelet Count 363 150 - 400 K/CUMM [facility] Granulocytes % 53.9 43 - 70 % [facility] Lymphocytes % 35.1 22 - 41 % [facility] Monocytes % 9.8 2 - 13 % [facility] Eosinophils % 0.8 0 - 6 % [facility] Basophils % 0.4 0 - 2 % [facility] Granulocytes Absolute 3.9 1.7 - 7.7 [facility] Lymphocytes Absolute 2.5 1.0 - 3.0 [facility] Monocytes Absolute 0.7 0.2 - 1.0 [facility] Eosinophils Absolute 0.1 0.0 - 0.4 [facility] Basophils Absolute 0.0 0.0 - 0.1 [facility] BLOOD SPECIMEN / Unknown 02/18/2010 8:10 PM [employer] SERVICE WORKER 02/18/2010 8:16 PM [employer] SERVICE WORKER Narrative [facility] - 02/18/2010 8:34 PM [employer] SERVICE WORKER Perform for patients with UPPER abd* Fernie Josie Solares MD LAB - HEMATOLOGY ORD ERABLES [facility] [address] [place] [address] * (ABNORMAL) COMPREHENSIVE METABOLIC PANEL (02/18/2010 8:10 PM [employer] SERVICE WORKER) Glucose 99. 65 - 105 mg/dL [facility] BUN 6.(L) 7 - 18 mg/dL [facility] Creatinine .66 0.50 - 1.05 mg/dL [facility] BUN/Creatinine Ratio 8.7 [facility] Sodium 135.(L) 137 - 145 mmol/L [facility] Potassium 3.5(L) 3.6 - 5.0 mmol/L [facility] Chloride 103. 98 - 107 mmol/L [facility] CO2 22. 22 - 31 mmol/L [facility] Anion Gap 10. [facility] Calcium 8.7 8.4 - 10.6 mg/dL [facility] Alkaline Phosphatase 60. 38 - 126 U/L [facility] ALT 13. 7 - 56 U/L [facility] AST 24. 5 - 40 U/L [...] BLOOD SPECIMEN / Unknown 02/18/2010 8:10 PM [employer] SERVICE WORKER 02/18/2010 8:16 PM SPRING [employer]OR SERVICE WORKER Narrative [facility] - 02/18/2010 8:41 PM [employer] SERVICE WORKER Perform for patients with UPPER abd* Fernie Josie Solares MD LAB - CHEMISTRY [place] CAMP Performing Organization Address City/[facility]/ZIP Co de Phone Number [facility] [address] [place] [address] * LIPASE BLOOD (02/18/2010 8:10 PM [employer]OR SERVICE WORKER) Lipase 50. 23 - 208 U/L [facility] BLOOD SPECIMEN / Unknown 02/18/2010 8:10 PM [employer]OR SERVICE WORKER 02/18/2010 8:16 PM SPRING [employer]OR SERVICE WORKER Narrative [facility] - 02/18/2010 8:41 PM [employer]OR SERVICE WORKER Perform for patients with UPPER abd* Fernietaylor Solares MD LAB - CHEMISTRY DAVIDE CAMP Performing Organization Address [facility]/ZIP Co de Phone Number [facility] [address] [place] [phone] * (ABNORMAL) URINALYSIS ROUTINE W/REFLEX TO CULTURE (02/18/2010 8:00 PM [employer]OR SERVICE WORKER) Source clean catch [facility] Color UA YELLOW [facility] Character UA CLEAR [facility] Specific Farrell UA 1.017 1.002 - 1.030 [facility] pH UA 5.5 5.0 - 8.0 [facility] Protein UA NEGATIVE NEG [facility] Blood UA 2+ NEG [facility] Leukocyte UA NEGATIVE NEG [facility] Nitrite UA NEGATIVE NEG [facility] Glucose UA NEGATIVE NEG [facility] Ketone UA NEGATIVE NEG [facility] Bilirubin UA NEGATIVE NEG [facility] Urobilinogen UA 0.2 0.1 - 1.0 E.U./dl [facility] WBC UA 2-5(H) 0 - 4 /HPF [facility] RBC UA 2-5 0 - 5 /HPF [facility] Epithelial Cell UA 2-5 0 - 6 /HPF [facility] Bacteria UA NEGATIVE none [facility] Casts UA 5-10 Hyaline /LPF [facility] Crystals UA NOT DETECTED /HPF [facility] Yeast UA NOT DETECTED none [facility] Culture Urine No culture to be done per protocol. [facility] URINE SPECIMEN OBTAINED BY CLEAN CATCH PROCEDURE / Unknown 02/18/2010 8:00 PM [employer]OR SERVICE WORKER 02/18/2010 8:11 PM [employer]OR SERVICE WORKER Fernie Solares MD LAB - URINALYSIS ORD ERABLES [facility] [address] [place] [address]
--- OUTSIDE RECORDS SUMMARY | 2024-05-28 12:21 | XMS_ITS | Clinical Summary ---
Author Organization [facility] Address [address] [place] [address] Care Team Providers Care Manager Managed Care Name Role Phone Chiki Santos MD Primary Care Provider [phone] Social History Tobacco Use Types Packs/Day Years Used Date Smoking Tobacco: Never Assessed Comments Unknown Sex and Gender Information Value Date Recorded Sex Assigned at Not on file Legal Sex Female 7:50 PM CDT Gender Identity Not on file Sexual Orientation Not on file Plan of Treatment Health Maintenance Due Date Last Done Comments Cervical Cancer Screening Pa p Smear (Age 30 to 64) Every 3 Years 1980 Annual Physical 11/15/1982 Hepatitis C 11/15/1997 DTaP, Tdap and Td Vaccines ( 1 - Tdap) 11/15/1998 Hepatitis B Vaccines (1 of 3 - 19+ 3-dose series) 11/15/1998 Cervical Cancer Screening Pa p with HPV Testing (Age 30 to 64) Every 5 Years 11/15/2009 Cervical Cancer Screening with HPV 11/15/2009 Mammogram Screening 2019 COVID-19 Vaccine (2023-2 5 season) 2023 Influenza Adult (#1) 2023 HPV Vaccines Aged Out No longer eligi ble based on patient's age to complete this topic Meningococcal B Vaccine Aged Out No l onger eligible based on patient's age to complete this topic Meningococcal Vaccine Aged Out No hedy elvia eligible based on patient's age to complete this topic Pneumococcal Vaccine: Pediat rics (0 to 5 Years) and At-Risk Patients (6 to 64 Years) Aged Out No longer eligible b ased on patient's age to complete this topic RSV Immunizations Under 20 Months Aged Out No longer eligible based on patient's age to complete this topic Care Teams Manager Managed Care Relationship Specialty Start Date End Date Chiki Santos MD PCP - General 07/20/13
--- OUTSIDE RECORDS SUMMARY | 2024-05-28 12:21 | XMS_ITS | Referral Summary ---
Author Organization [facility] Address [address] [place] [address] Care Team Providers Care Chyron Operator Name Role Phone Ta Piedra MD Unavailable [phone] Leila Tam MD Primary Care Provider Yemi Bell MD Unavailable [phone] Encounters Date Type Department Care Team Description 04/10/2024 4:53 PM MOTORCYCLE REPAIRER - 04/10/2024 11:59 PM MOTORCYCLE REPAIRER Hospital Encounter [place] [id number] Acute pharyngitis, unspecified etiology Discharge Disposition: Discharge to home or self care 04/10/2024 4:15 PM MOTORCYCLE REPAIRER Office Visit [facility] at [address] [address] Geoff Hammond NP Acute pharyngitis, unspecified etiology (Primary Dx); Right ear pain from Last 3 Months Allergies Active Allergy Reactions Criticality Noted Date Comments Tolterodine Other (See comments) Low 10/22/2022 Severe dry eye Medications mirabegron ER (MYRBETRIQ) 25 mg tablet extended release 24 hrIndications:OA B (overactive bladder) Take 1 tablet (25 mg total) by mouth daily 90 tablet 3 Active Additional Information Patient not taking.Reported [...] 1 TABLET( 150 MCG TOTAL) BY MOUTH SUMMONS SERVER BEFORE BREAKFAST 90 tablet 1 4 Active [...] levothyroxine. Check TSH and adjust as needed Immunizations Immunization Administration Dates Next Due Influenza, Quadrivalent, Spl it, Preservative Free, Intramuscular 12/27/2018 Influenza, Trivalent, Preser vative Free, Intramuscular 01/07/2017,01/05/2016,12/30/2014 Influenza, Unspecified 03/18/2023(Deferr ed: Patient Refused),03/18/2022(Deferred: Patient Refused) Tdap 04/13/2016 Social History Tobacco Use Types Packs/Day Years [...] on file Legal Sex Female 6:19 PM MOTORCYCLE REPAIRER Gender Identity Not on file Sexual Orientation Not on file Last Filed Vital Signs Vital Sign Reading Time Taken Comments Blood Pressure 120/80 04/10/2024 4:17 PM MOTORCYCLE REPAIRER Pulse 80 04/10/2024 4:17 PM MOTORCYCLE REPAIRER Temperature 36.7 C (98.1 F) 04/10/2024 4:17 PM MOTORCYCLE REPAIRER Respiratory Rate 18 04/10/2024 4:17 PM MOTORCYCLE REPAIRER Oxygen Saturation 98% 04/10/2024 4:17 PM MOTORCYCLE REPAIRER Inhaled Oxygen Concentration - - Weight 102.1 kg (225 lb) 04/10/2024 4:17 PM MOTORCYCLE REPAIRER Height 185.4 cm (6' 1 ) 02/01/2024 8:54 AM MOTORCYCLE REPAIRER Body Mass Index 29.69 02/01/2024 8:54 AM MOTORCYCLE REPAIRER Plan of Treatment Not on file Procedures Procedure Name Priority Date/Time Associated Diagnosis Comments THROAT CULTURE Routine 04/10/2024 4:53 PM MOTORCYCLE REPAIRER Acute pharyngitis, unspecified etiology POCT RAPID STREP Routine 04/10/2024 4:42 PM MOTORCYCLE REPAIRER Acute pharyngitis, unspecified etiology HEPATITIS C ANTIBODY Routine 10/24/2023 9:09 AM CDT Annual physical exam Encounter for hepatitis C screening test for low risk patient HM COLONOSCOPY Routine 06/09/2020 Routine physical examination from Last 3 Months or Most Recently Relevant to Health Maintenance Results * Throat culture Throat (04/10/2024 4:53 PM MOTORCYCLE REPAIRER) Report Final Report: No growth of pathogens. Comment:Testing performed by : [facility], [address] [place]., [address] Throat 04/10/2024 4:53 PM MOTORCYCLE REPAIRER 04/11/2024 1:55 AM MOTORCYCLE REPAIRER Narrative DEYANIRA Hylton 04/12/2024 7:11 AM MOTORCYCLE REPAIRER Testing performed by [facility] Microbiology Laboratory ([phone]). us Geoff Hammond NP LAB [facility] - [facility] Final Result DEYANIRA [address] Department [place] [address] * POCT rapid strep A (04/10/2024 4:42 PM MOTORCYCLE REPAIRER) Pathologist [facility] Rapid Strep A, POC Negative Negative Swab 04/10/2024 4:42 PM MOTORCYCLE REPAIRER us Geoff Hammond NP POINT OF CARE TEST ORDERABLES F inal Result * Hepatitis C antibody Blood (10/24/2023 9:09 AM CDT) Hep C Ab NON-REACTI VE NON-REACT CATHI [facility] Comment: HCV antibody was non-reactive. There is no laboratory evidence of HCV infection. In most cases, no further action is required. However, if recent HCV exposure is suspected, a test for HCV RNA (test code 27641) is suggested. For additional information please refer to http://education.ison furniture/faq/MRR12t9 (This link is being provided for informational/ educational purposes only.) Blood 10/24/2023 9:09 AM CDT 10/24/2023 9:10 AM CDT Narrative [facility] - 10/25/2023 7:48 AM CDT FASTING:YES FASTING: YES Leila Tam MD LAB MICROBIOLOGY - GEN ERAL ORDERABLES Final Result [facility] [address] [place] [address] * COLONOSCOPY (06/09/2020) Scribed Colonoscopy Abnormal Comment:see pathology and co lonoscopy reprot in [facility] from [facility] 06/09/2020 Chandrika Provider HEALTH MAINTENANCE Final Result from Last 3 Months or Most Recently Relevant to Health Maintenance Insurance [facility] Care Teams Chyron Operator Relationship Specialty Start Date End Date Leila Tam MD [address] [place] [address] PCP - General Family Practice 09/21/21 Ta Piedra MD [address] [place] [address] Referring Physician Otolaryngology 04/29/19 Yemi Bell MD [address] [address] Referring Physician Obstetrics and Gynecology 10/23/23
--- OUTSIDE RECORDS SUMMARY | 2024-05-28 12:21 | XMS_ITS | Clinical Summary ---
Author Organization [facility] Jamal duarte Sherry Address [address] [place] [address] Care Team Providers Care Mandrel Press Hand Name Role Phone Unavailable Primary Care Provider Unavailabl e Allergies No known active allergies Medications levothyroxine 150 mcg tablet Take 150 mcg by mouth daily. 01/27/2024 Active propranoloL (INDERAL LA) 60 mg Long Acting 24 hour capsule Take 60 mg by mouth daily. 10/22/2022 Active Active Problems No known active problems Encounters Date Type Department Care Team Description 05/28/2024 11:15 AM CDT Office Visit [facility] Oncology and Hematology - [place] [address] [place] [address] Arian Hdz MD Reactive thrombocytosis (Primary Dx) 05/26/2024 External Device Data STL ABSTRACTION Provider, Abstract 05/26/2024 External Device Data STL ABSTRACTION Provider, Abstract 05/23/2024 External Device Data STL ABSTRACTION Provider, Abstract 05/22/2024 External Device Data STL ABSTRACTION Provider, Abstract 05/19/2024 External Device Data STL ABSTRACTION Provider, Abstract 05/05/2024 External Device Data STL ABSTRACTION Provider, Abstract 04/28/2024 External Device Data STL ABSTRACTION Provider, Abstract 04/14/2024 External Device Data STL ABSTRACTION Provider, Abstract 04/08/2024 External Device Data STL ABSTRACTION Provider, Abstract 04/08/2024 External Device Data STL ABSTRACTION Provider, Abstract 04/01/2024 External Device Data STL ABSTRACTION Provider, Abstract from Last 3 Months Family History Medical History Relation Name Comments No Known Problems Brother No Known Problems Child 1 No Known Problems Child 2 No Known Problems Father Colon Cancer Mother No Known Problems Sister Relation Name Status Comments Brother Alive Child 1 Alive Child 2 Alive Father Alive Mother Alive Sister Alive Social History Tobacco Use Types Packs/Day Years Used Date Smoking Tobacco: Never Tobacco Cessation:Counseling Given: Not Answered Alcohol Use Standard Drinks/Week Comments Yes 0 (1 standard drink = 0.6 oz pur e alcohol) Occasionally Comments Unknown Sex and Gender Information Value Date Recorded Sex Assigned at Not on file Legal Sex Female 12:11 PM CDT Gender Identity Not on file Sexual Orientation Not on file Last Filed Vital Signs Vital Sign Reading Time Taken Comments Blood Pressure 121/77 05/28/2024 10:57 AM CDT Pulse 79 05/28/2024 10:57 AM CDT Temperature 35.9 C (96.6 F) 05/28/2024 10:57 AM CDT Respiratory Rate 17 05/28/2024 10:5 7 AM CDT Oxygen Saturation 98% 05/28/2024 10: 57 AM CDT Inhaled Oxygen Concentration - - Weight 103.7 kg (228 lb 9.6 oz) 025 10:57 AM CDT Height 185.4 cm (6' 1 ) 02/12/2024 10:2 4 AM COMPRESS ENGINEER Body Mass Index 30.16 02/12/2024 10:24 AM COMPRESS ENGINEER Plan of Treatment Upcoming Encounters Date Type Department Care Team (Late st Contact Info) Description 09/30/2024 11:00 AM CDT Office Visit [facility] Oncology and Hematology [facility] [address] [facility] [address] [place] [address] Arian Hdz MD [address] [facility] [address] [place] [address] Health Maintenance Due Date Last Done Comments Pre-Diabetes and Diabetes Screening 1980 HEPATITIS B VACCINES (1 of 3 - 19+ 3-dose series) 11/15/1998 CERVICAL CANCER SCREENING 11/15/2009 BREAST CANCER SCREENING 2019 INFLUENZA VACCINE (#1) 2023 9, 01/07/2017, 01/05/2016, Additional history exists Preventative Visit- Commercial 03/18/2024 10/23/2023, 10/22/2022, 10/02/2021 DTAP/TDAP/TD VACCINES (2 - Td or Tdap) 04/13/2026 04/13/2016 HPV VACCINES Aged Out No longer eligi [place] based on patient's age to complete this topic Insurance [facility] CHOICE [id number]
--- OUTSIDE RECORDS SUMMARY | 2024-05-28 12:21 | XMS_ITS | Encounter Summary ---
Author Organization [facility] [employer] [facility] Address [address] [place] [address] Care Team Providers Care Supervisor Char House Name Role Phone Unavailable Primary Care Provider Unavailabl e Reason for Visit * Reason Comments Follow Up Encounter Details Date Type Department Care Team (Late st Contact Info) Description 05/28/2024 11:15 AM CDT Office Visit [facility] Oncology and Hematology - [place] [address] [facility] [address] [place] [address] Arian Hdz MD [address] [facility] [address] [place] [address] Reactive thrombocytosis (Primary Dx) Social History Tobacco Use Types Packs/Day Years [...] on file documented as of this encounter Last Filed Vital Signs Vital Sign Reading [...] 9.6 oz) 025 10:57 AM CDT Height - - Body Mass Index 30.16 02/12/2024 10:24 AM DRAFTING SUPERVISOR documented in this encounter Progress Notes * Arian Hdz MD - 05/28/2024 11:23 AM CDT HEMATOLOGY / ONCOLOGY PROGRESS NOTE Patient Identification: Name: Navya Stephenson Age: 43 y.o. Sex: female : 1980 DIAGNOSIS Thrombocytosis CURRENT TREATMENT Baby aspirin TREATMENT HISTORY SUBJECTIVE Patient came to the office for follow-up visit. She denies any bleeding and bruising. Denies any chest pain and shortness of breath. Weight and appetite stable. No other new complaints. Review of system Constitutional: Patient did not mention fevers, sweats, denies any tiredness and fatigue, weight and appetite stable HEENT: Patient did not mention sinus congestion, hearing or vision problems Respiratory: Patient did not mention cough, dyspnea, wheeze Cardiovascular: Patient did not mention chest pain, exertional chest pressure/discomfort, nausea, syncope, shortness of breath GI: Patient did not mention constipation, diarrhea, dsyphagia, reflux symptoms, vomiting, melena : Patient did not mention dysuria, frequency, incontinence, urgency Integumentary system: no lymphadenopathy, sweats, flushing Musculoskeletal: Patient not mention: myalgia, arthralgia Neurological: Patient did not mention blurry or disturbed vision, numbness/weakness, dizziness Skin: No lumps, bumps or rashes. 12 point review of system was reviewed Objective: Vital signs in last 24 hours: As per nursing note Exam: HEENT: Atraumatic, external ears normal, nose normal, oropharynx moist, no pharyngeal exudates. no sinus tenderness Neck- normal range of motion, no tenderness, supple Respiratory: No respiratory distress, normal breath sounds, no rales, no wheezing Cardiovascular: Normal rate, normal rhythm, no murmurs, no gallops, no rubs GI: Soft, nondistended, normal bowel sounds, nontender, no splenomegaly, no hepatomegaly, no mass, no rebound, no guarding : No costovertebral angle tenderness Musculoskeletal: No edema, no tenderness, no deformities. Back- no tenderness Integument: Well hydrated, no rash, Digits and nails inspection normal Lymphatic: No lymphadenopathy noted Neurologic: Alert & oriented x 3, CN 2-12 normal, Exam as above PATH LABS Labs from February 11 showed creatinine 0.6 C-reactive protein 0.5 iron 153 saturation 46 ferritin 32 hemoglobin 14.2 WBC 8.2 platelet 493,000 sedimentation rate 12 Labs from May 28 showed WBC 9.2 hemoglobin 13.9 platelet 4 69,000 @IMAGEIMP@ Assessment: Plan: There are no active problems to display for this patient. Thrombocytosis. Reactive markers are normal. Iron studies are normal. JAK2 mutation testing was notapproved by the insurance. Etiology remains unclear. Labs showed improvement in the platelet count now down to 469,000. She is able to take baby aspirinonce a day. No need for hydroxyurea. Will continue to observe and repeat blood test will be done in4 months. Hypothyroidism. Stable on levothyroxine. Headaches. Patient is on propranolol and take Excedrin as needed. Follow-up in 4 months. 05/28/2024 Arian Hdz MD documented in this encounter Plan of Treatment Upcoming Encounters Date Type Department Care Team (Late st Contact Info) Description 09/30/2024 11:00 AM CDT Office Visit [facility] Oncology and Hematology - [place] [address] [place] [address] [address] [place] [address] Arian Hdz MD [address] [facility] [address] [place] [address] Scheduled Orders Name Type Priority Associated Diagnoses Orde r Schedule CBC WITHOUT DIFFERENTIAL Lab Stat Reactive thrombocytosis Expected: 09/17/2024, Expires: 05/28/2025 documented as of this encounter Visit Diagnoses Diagnosis Reactive thrombocytosis- Primary documented in this encounter
== END 2024-05-28 10:38 | disposition home or self-care (01) ==
LOC: ANHLAB 10:37
PROVIDERS: PCP Physician Assistant; Visit Provider Internal Medicine Hematology & Oncology
DX: D75.838 Other thrombocytosis (principal)
CPT/HCPCS: 36415; 85027

== ENCOUNTER 2024-10-07 14:06 | Outpatient (CLI) | payer OTHER, SELFPAY ==
--- OUTSIDE RECORDS SUMMARY | 2024-10-07 14:13 | XMS_ITS | Clinical Summary ---
Author Organization [facility] Address [address] [facility] [place] [address] Care Team Providers Care Bus Greaser Name Role Phone Unavailable Primary Care Provider Unavailabl e Source Comments [facility],non-owned Affiliates and Associated Physician Practices is amultiple site organization consisting of ambulatory clinics and hospital sitesin [place], [place], [place] and [place]. This disclosure is being madepursuant to the Care Everywhere program and may not contain all information available regarding this patient. Last updated 17.[facility] Allergies No known active allergies Medications * Be aware that medications may not be up to date on this document. Alwaysverify current medications with the patient. levothyroxine (SYNTHROID) 150 MCG tablet Take 150 mcg by mouth once daily 1 Active Probiotic Product (PROBIOTIC DAILY PO) Active Aspirin-Acetamin ophen-Caffeine (EXCEDRIN PO) Active omeprazole (PRILOSEC) 20 MG capsuleIndicatio ns:Gastroesophag eal reflux disease without esophagitis TAKE 1 CAPSULE BY MOUTH DAILY BEFORE BREAKFAST 90 capsule 3 1 Active Active Problems Problem Noted Date Diagnosed [...] = 0.6 oz pur e alcohol) socially Comments No Sex and Gender Information Value Date Recorded Sex Assigned at Not on file Legal Sex Female 9:40 AM VENDOR ANALYST Gender Identity Not on file Sexual Orientation [...] A M CDT Height 185.4 cm (6' 1) 06/08/2020 9:05 AM CDT Body Mass Index 28.26 06/08/2020 9:05 AM CDT Plan of Treatment Health Maintenance Due Date Last Done Comments LIPID TESTING 1980 MAMMOGRAM 1980 HIV SCREENING 11/15/1994 HEPATITIS C SCREENING 11/11/1997 DTAP/TDAP/TD VACCINES (1 - Tdap) 11/15/1998 HEPATITIS B VACCINE (1 of 3 - 19+ 3-dose series) 11/15/1998 PAP SMEAR 11/15/2000 HPV VACCINE (1 - 3-dose SCDM series) 11/15/2006 SCREENING FOR DIABETES 07/13/2020 02/18/2010 COVID-19 VACCINE ( - 2023-2 5 season) 2023 DEPRESSION SCREENING 03/18/2024 INFLUENZA VACCINE (#1) 2024 ZOSTER VACCINE (1 of 2) 11/15/2029 HIB [...] COMPREHENSIVE METABOLIC PANEL STAT 02/18/2010 8:10 PM VENDOR ANALYST from Last 3 Months or Most Recently Relevant to Health Maintenance Results * (ABNORMAL) COMPREHENSIVE METABOLIC PANEL (02/18/2010 8:10 PM VENDOR ANALYST) Glucose 99. 65 - 105 mg/dL [facility] BUN 6.(L) 7 - 18 mg/dL [facility] Creatinine .66 0.50 - 1.05 mg/dL [facility] BUN/Creatinine Ratio 8.7 [facility] Sodium 135.(L) 137 - 145 mmol/L [facility] Potassium 3.5(L) 3.6 - 5.0 mmol/L [facility] Chloride 103. 98 - 107 mmol/L [facility] CO2 22. 22 - 31 mmol/L [facility] Anion Gap 10. [facility] Calcium 8.7 8.4 - 10.6 mg/dL [facility] Alkaline Phosphatase 60. 38 - 126 U/L [facility] ALT 13. 7 - 56 U/L [facility] AST 24. 5 - 40 U/L [facility] Bilirubin Total < .1(L) 0.2 - 1.3 mg/dL [facility] Protein Total 7.7 6.3 - 8.2 gm/dL [facility] Albumin 4.2 3.9 - 5.0 gm/dL [facility] eGFR by MDRD >60 SEE BELOW ml/min/1.7 3 m2 [facility] Comment: >60 Normal Chronic Disease <60 Renal Failure <15 BLOOD SPECIMEN / Unknown 02/18/2010 8:10 PM VENDOR ANALYST 02/18/2010 8:16 PM VENDOR ANALYST Narrative [facility] - 02/18/2010 8:41 PM VENDOR ANALYST Perform for patients with UPPER abd* us Fernie D Beck [facility] - CHEMISTRY ORDERABLES Final Result [facility] [address] [place] [address] from Last 3 Months or Most Recently Relevant to Health Maintenance Insurance [facility]
--- OUTSIDE RECORDS SUMMARY | 2024-10-07 14:13 | XMS_ITS | Continuity of Care Document ---
Author Organization [facility] Address [address] [place] [address] [address] [place] [address] Phone Care Team Providers Care Collar Trimmer Name Role Phone Rafy, Darin Unavailable Unavailable Procedures Procedure Date Eye Exam Established Pt Advance Directives Directive Yes / No Effective Date File Name No Information Encounters Encounter Description Practice Location Reason(s) For Visit Diagnoses Date Provider Providers Copied on Encounter [facility], [address] [place] [address] [address], [place], [place], [id number], [place] tel:[phone] [facility] No Information [address] , [address], [place], [address], [place]. tel:[phone] Family History Family Member Type Diagnosis Age At Onset No Information Payers Payer name Insurance type Covered republican ID Authoriza tion(s) No Information Social History [...]
--- OUTSIDE RECORDS SUMMARY | 2024-10-07 14:13 | XMS_ITS | Clinical Summary ---
[facility] Address [address] [place] [address] Care Team Providers Care Forestry Workers Name Role Phone Unavailable Primary Care Provider Unavailabl e Allergies No known active allergies Medications levothyroxine 150 mcg tablet Take 150 mcg by mouth daily. 01/27/2024 Active propranoloL (INDERAL LA) 60 mg Long Acting 24 hour capsule Take 60 mg by mouth daily. 10/22/2022 Active Active Problems No known active problems Encounters Date Type Department Care Team Description 09/30/2024 External Device Data STL ABSTRACTION Provider, Abstract 09/29/2024 External Device Data STL ABSTRACTION Provider, Abstract 09/01/2024 External Device Data STL ABSTRACTION Provider, Abstract 08/18/2024 External Device Data STL ABSTRACTION Provider, Abstract 08/06/2024 External Device Data STL ABSTRACTION Provider, Abstract 08/05/2024 External Device Data STL ABSTRACTION Provider, Abstract 08/04/2024 External Device Data STL ABSTRACTION Provider, Abstract [...] 10:57 AM CDT Height 185.4 cm (6' 1) 02/12/2024 10:2 4 AM RN INTERNAL MEDICINE Body Mass Index 30.16 02/12/2024 10:24 AM RN INTERNAL MEDICINE Plan of Treatment Upcoming Encounters Date Type Department Care Team (Late st Contact Info) Description 10/07/2024 2:30 PM CDT Office Visit [facility] Oncology and Hematology [facility] [address] [facility] [address] [place] [address] Arian Hdz MD [address] [place] [address] Health Maintenance Due Date Last Done Comments Pre-Diabetes and Diabetes Screening 1980 HPV VACCINES (1 - 3-dose series) 11/15/1994 HEPATITIS B VACCINES (1 of 3 - 19+ 3-dose series) 11/15/1998 HPV/Cotest (21-29) 11/15/2000 CERVICAL CANCER SCREENING 11/15/2009 HPV/Cotest (30-65) 11/15/2009 PAP SMEAR 11/15/2009 BREAST CANCER SCREENING 2019 Preventative Visit- Commercial 03/18/2024 0 10/23/2023, 10/22/2022, 10/02/2021 INFLUENZA VACCINE (#1) 2024 9, 01/07/2017, 01/05/2016, Additional history exists DTAP/TDAP/TD VACCINES (2 - T d or Tdap) 04/13/2026 04/13/2016 Insurance [facility] CHOICE [id number] [place] [id number]
--- OUTSIDE RECORDS SUMMARY | 2024-10-07 14:13 | XMS_ITS | Referral Summary ---
Author Organization [facility] Address [address] [place] [address] Care Team Providers Care Per Diem Physical Therapist Name Role Phone Ta Piedra MD Unavailable [phone] Yemi Bell MD Unavailable [phone] Lori Lima NP Primary Care Provider [phone] Encounters Date Type Department Care Team Description 09/22/2024 11:30 AM CDT Office Visit [facility] Family Medicine [address] [address] Lori Lima NP Hypothyroidism (acquired) (Primary Dx); BMI 30.0-30.9,adult; Obesity (BMI 30-39.9) from Last 3 Months Allergies Active Allergy Reactions Criticality Noted Date Comments Tolterodine Other (See comments) Low 10/22/2022 Severe dry eye Medications Restasis 0.05 % ophthalmic emulsion 1 drop 2 (two) times a day 5 Active estradioL (ESTRACE) 0.01 % (0.1 mg/gram) vaginal cream APPLY 1 GRAM TO VULVA AND VAGINA NIGHTLY FOR 2 WEEKS THEN REDUCE TO 2 TO 3 TIMES PER WEEK THEREAFTER 5 Active progesterone (PROMETRIUM) 100 mg capsule TAKE 1 CAPSULE BY MOUTH EVERY DAY AT BEDTIME 5 Active doxycycline (DORYX) 100 mg EC tablet Take 1 tablet (100 mg total) by mouth 2 (two) times a day Active levothyroxine (SYNTHROID) 150 mcg tabletIndicatio ns:Hypothyroidi sm (acquired) Take 1 tablet (150 mcg total) by mouth contemporary or modern dancer before breakfast 90 tablet 1 5 Active mirabegron ER (MYRBETRIQ) 25 mg tablet extended release 24 hrIndications:O AB (overactive bladder) Take 1 tablet (25 mg total) by mouth daily 90 tablet 3 3 09/23/19 25 Discontin ued(Thera py completed ) propranolol LA (INDERAL LA) 60 mg 24 hr capsuleIndicati ons:Chronic daily headache,Migrai ne without aura and without status migrainosus, not intractable Take 1 capsule (60 mg total) by mouth daily 90 capsule 4 3 09/23/19 25 Discontin ued(Thera py completed ) levothyroxine (SYNTHROID) 150 mcg tabletIndicatio ns:Hypothyroidi sm (acquired) TAKE 1 TABLET( 150 MCG TOTAL) BY MOUTH REGISTERED NURSE RENAL BEFORE BREAKFAST 90 tablet 1 4 09/23/19 25 Discontin ued(Reord er) Active Problems Problem Noted Date Diagnosed Date Obesity (BMI 30-39.9) 09/22/2024 Assessment & Plan (09/22/2024 11:30 AM CDT): Discussed the patients BMI: The BMI is above average BMI management is complete. BMI follow-up includes: Nutrition Counseling and education provided Family hx of colon cancer 10/23/2023 OAB [...] you have a drink containing alcohol? Never 09/22/2024 Q2: How many drinks containi ng alcohol do you have on a typical day when you are drinking? Patient does not drink Q3: How often do you have si x or more drinks on one occasion? 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 Gender Identity Not on file Sexual Orientation Not on file Last Filed Vital Signs Vital Sign Reading Time Taken Comments Blood Pressure 122/80 09/22/2024 11:26 AM CDT Pulse 75 09/22/2024 11:26 AM CDT Temperature 36.9 C (98.5 F) 09/22/2024 11:26 AM CDT Respiratory Rate 18 04/10/2024 4:17 PM CREATIVE PROJECT MANAGER Oxygen Saturation 97% 09/22/2024 11:26 AM CDT Inhaled Oxygen Concentration - - Weight 104.8 kg (231 lb) 09/22/2024 11:26 AM CDT Height 185.4 cm (6' 1) 09/22/2024 11:26 AM CDT Body Mass Index 30.48 09/22/2024 11:26 AM CDT Plan of Treatment Not on file Procedures Procedure Name Priority Date/Time Associated Diagnosis Comments HEPATITIS C ANTIBODY Routine 10/24/2023 9:09 AM CDT Annual physical exam Encounter for hepatitis C screening test for low risk patient HM COLONOSCOPY Routine 06/09/2020 Routine physical examination from Last 3 Months or Most Recently Relevant to Health Maintenance Results * Hepatitis C antibody Blood (10/24/2023 9:09 AM CDT) Hep C Ab NON-REACTI VE NON-REACT CATHI [facility] Comment: HCV antibody was non-reactive. There is no laboratory evidence of HCV infection. In most cases, no further action is required. However, if recent HCV exposure is suspected, a test for HCV RNA (test code 25823) is suggested. For additional information please refer to http://education.RealDirect/faq/PWC96a5 (This link is being provided for informational/ educational purposes only.) Blood 10/24/2023 9:09 AM CDT 10/24/2023 9:10 AM CDT Narrative [facility] - 10/25/2023 7:48 AM CDT FASTING:YES FASTING: YES Leila Tam MD LAB MICROBIOLOGY - GEN ERAL ORDERABLES Final Result [facility] [address] [id number] * COLONOSCOPY (06/09/2020) Scribed Colonoscopy Abnormal Comment:see pathology and co lonoscopy reprot [facility] Historical Provider HEALTH MAINTENANCE Final Result from Last 3 Months or Most Recently Relevant to Health Maintenance Insurance [facility] H[facility]/PPO Address: [facility] [address] [place] [address] [facility] HMO/PPO Address: [address] [place] [phone] [facility] HMO/PPO Address: [address] [place] [phone] Care Teams Per Diem Physical Therapist Relationship Specialty Start Date End Date Lori Lima NP [address] [facility] [address] [facility] [address] [place] [address] PCP - General Internal Medicine 09/22/24 Ta Piedra MD [facility] [place] [address] Referring Physician Otolaryngology 04/29/19 Yemi Bell MD [address] [address] Referring Physician Obstetrics and Gynecology 10/23/23
--- OUTSIDE RECORDS SUMMARY | 2024-10-07 14:13 | XMS_ITS | Clinical Summary ---
Author Organization [facility] Address [address] [place] [address] Care Team Providers Care Teradata Solution Architect Name Role Phone Ta Piedra MD Unavailable [phone] Yemi Bell MD Unavailable [phone] Lori Lima NP Primary Care Provider [phone] Allergies Active Allergy Reactions Criticality Noted Date [...] 1 tablet (150 mcg total) by mouth analytical technician before breakfast 90 tablet 1 5 Active mirabegron ER (MYRBETRIQ) 25 mg tablet extended release 24 hrIndications:O AB (overactive bladder) Take 1 tablet (25 mg total) by mouth daily 90 tablet 3 3 07/08/20 25 Discontin ued(Thera py completed ) propranolol LA (INDERAL LA) 60 mg 24 hr capsuleIndicati ons:Chronic daily headache,Migrai ne without aura and without status migrainosus, not intractable Take 1 capsule (60 mg total) by mouth daily 90 capsule 4 3 09/23/19 25 Discontin ued(Thera py completed ) levothyroxine (SYNTHROID) 150 mcg tabletIndicatio ns:Hypothyroidi sm (acquired) TAKE 1 TABLET( 150 MCG TOTAL) BY MOUTH REED MAN BEFORE BREAKFAST 90 tablet 1 4 09/23/19 [...] Description 09/22/2024 11:30 AM CDT Office Visit 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 Gender Identity Not on file Sexual Orientation Not on file Obstetrics History Last Filed Vital Signs Vital Sign Reading Time Taken Comments Blood Pressure 122/80 09/22/2024 11:26 AM CDT Pulse 75 09/22/2024 11:26 AM CDT Temperature 36.9 C (98.5 F) 09/22/2024 11:26 AM CDT Respiratory Rate 18 04/10/2024 4:17 PM NONPROFIT FUNDRAISER Oxygen Saturation 97% 09/22/2024 11:26 AM CDT Inhaled Oxygen Concentration - - Weight 104.8 kg (231 lb) 09/22/2024 11:26 AM CDT Height 185.4 cm (6' 1) 09/22/2024 11:26 AM CDT Body Mass Index 30.48 09/22/2024 11:26 AM CDT Plan of Treatment Health Maintenance Due Date Last Done Comments Breast Cancer Screening-Mammogram 1979 Cervical Cancer Screening 1979 Covid-19 Vaccine ( season) 2023 04/01/2021, 07/19/2020, 06/15/2020 Regular Well Visit/Exam 18-64 10/22/2024 10/23/2023, 10/22/2022, 10/02/2021 Influenza Vaccine (#1) 2024 9, 01/07/2017, 01/05/2016, Additional history exists Colon Cancer Screening-Colonoscopy 06/09/2025 06/09/2020 Depression Screening 09/22/2025 09/22/2024, 10/23/2023, 10/22/2022, Additional history exists DTaP/Tdap/Td Vaccine (2 - Td or Tdap) [...] C screening test for low risk patient COLONOSCOPY Routine 06/09/2020 Routine physical examination from Last 3 Months or Most Recently Relevant to Health Maintenance Results * Hepatitis C antibody Blood (10/24/2023 9:09 AM CDT) Hep C Ab NON-REACTI VE NON-REACT CATHI [facility] Comment: HCV antibody was non-reactive. There is no laboratory evidence of HCV infection. In most cases, no further action is required. However, if recent HCV exposure is suspected, a test for HCV RNA (test code 67791) is suggested. For additional information please refer to http://education.TableApp/faq/EKB89n5 (This link is being provided for informational/ educational purposes only.) Blood 10/24/2023 9:09 AM CDT 10/24/2023 9:10 AM CDT Narrative [facility] - 10/25/2023 7:48 AM CDT FASTING:YES FASTING: YES us Leila Tam MD LAB MICROBIOLOGY - GEN ERAL ORDERABLES Final Result [facility] [address] [place] [address] * COLONOSCOPY (06/09/2020) Scribed Colonoscopy Abnormal Comment:see pathology and co lonoscopy reprot in [facility] from [facility] 06/09/2020 us Historical Provider MD HEALTH MAINTENANCE Final Result from Last 3 Months or Most Recently Relevant to Health Maintenance Insurance [facility] Care Teams Teradata Solution Architect Relationship Specialty Start Date End Date Lori Lima NP [address] [facility] [address] [place] [address] PCP - General Internal Medicine 09/22/24 Ta Piedra MD [facility] [place] [address] Referring Physician Otolaryngology 04/29/19 Yemi Bell MD [address] [facility] [address] [facility] [address] [place] [address] Referring Physician Obstetrics and Gynecology 10/23/23
--- OUTSIDE RECORDS SUMMARY | 2024-10-07 14:13 | XMS_ITS | Encounter Summary ---
Author Organization [facility] Address [address] [facility] [place] [address] Care Team Providers Care Crystal Finisher Name Role Phone Unavailable Primary Care Provider Unavailabl e Reason for Visit * Reason Onset Date Comments Returned Call 06/29/2020 Encounter Details Date Type Department Care Team (Late st Contact Info) Description 06/29/2020 Telephone [facility] - GI [address] [place] [address], [place] [address] Arabella Castillo MD [address] [place] [address] [place] [address] Returned Call Social History Tobacco Use Types Packs/Day Years Used Date Smoking Tobacco: Never Smokeless Tobacco: Never Alcohol Use Standard Drinks/Week Comments Yes 0 (1 standard drink = 0.6 oz pur e alcohol) socially Comments No Sex and Gender Information Value Date Recorded Sex Assigned at Not on file 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 Arabella Craig MD Wiping Cloth Cutter Internal Medicine Division of Gastroenterology and Hepatology documented in this encounter Plan of Treatment Not on file documented as of this encounter Visit Diagnoses Not on filedocumented in this encounter
--- OUTSIDE RECORDS SUMMARY | 2024-10-07 14:13 | XMS_ITS | Clinical Summary ---
Author Organization [facility] Address [address] [place] [address] Care Team Providers Care Territory Account Representative Name Role Phone Chiki Santos MD Primary Care Provider [phone] Social History Tobacco Use Types Packs/Day Years [...] of 3 - 19+ 3-dose series) 11/15/1998 HPV Vaccines (1 - 3-dose SCD M series) 11/15/2006 Cervical Cancer Screening Pa p with HPV Testing (Age 30 to 64) Every 5 Years 11/15/2009 Cervical Cancer Screening with HPV 11/15/2009 Mammogram Screening 2019 COVID-19 Vaccine ( - 2023-2 5 season) 2023 Meningococcal B Vaccine Aged Out No l onger eligible based on patient's age to complete this topic Meningococcal Vaccine Aged Out No hedy elvia eligible based on patient's age to complete this topic Pneumococcal Vaccine: Pediat rics (0 to 5 Years) and At-Risk Patients (6 to 49 Years) Aged Out No longer eligible b ased on patient's age to complete this topic RSV Immunizations Under 20 Months Aged Out No longer eligible based on patient's age to complete this topic Care Teams Territory Account Representative Relationship Specialty Start Date End Date Chiki Santos MD [facility] - General 07/20/13
[2024-10-07 14:20] LABS: Hematocrit 39.9 % (37.0-47.0); Hemoglobin 13.0 g/dL (12.0-15.0); Mean Corpuscular HGB Conc 32.6 g/dl (32-36); Mean Corpuscular Hemoglobin 30.7 pg (26-34); Mean Corpuscular Volume 94.1 fl (80-100); Platelet Count Result 459 k/mm3 (150-375); Red Blood Count 4.24 M/mm3 (4.2-5.4); White Blood Count 9.7 K/mm3 (4.5-10.0)
== END 2024-10-07 14:07 | disposition home or self-care (01) ==
LOC: ANHLAB 14:09
PROVIDERS: PCP Nurse Practitioner Family; Visit Provider Internal Medicine Hematology & Oncology
DX: D75.838 Other thrombocytosis (principal)
CPT/HCPCS: 36415; 85027

== ENCOUNTER 2024-12-09 16:56 | Emergency (ER) | payer OTHER, SELFPAY ==
--- OUTSIDE RECORDS SUMMARY | 2007-02-05 04:56 | XMS_ITS | Continuity of Care Document ---
Author Organization [facility] Address [address] [place] [address] [address] [place] [address] Phone Care Team Providers Care Scientist Electronics Name Role Phone Darin Hillman Unavailable Unavailable Procedures Procedure Date Eye Exam Established Pt Advance Directives Directive Yes / No Effective Date File Name No Information Encounters Encounter Description Practice Location Reason(s) For Visit Diagnoses Date Provider Providers Copied on Encounter [facility], [address] [place] [address] [address], [place], [place], [id number], [place] tel:[phone] [facility] (formerly [facility]) No Information [address]. [address] , [address], [place], [address], [place]. tel:[phone] Family History Family Member Type Diagnosis Age At Onset No Information Payers Payer name Insurance type Covered green party ID Authoriza tion(s) No Information Social History Type Description Quantity Date Captured Comments Sex Female Smoking Status No Information Chief Complaint And Reason For Visit No Information Reason For Referral Reason For Referral No Information History Of Present Illness Encounter Date Complaint History Of Prese nt Illness No Information Functional Status Date Functional Assessmen t No Information Instructions Date Instruction Additional Infor mation No Information Assessments Type Assessment Date No Information Patient Care Teams Name Effective Dates (start - stop) Status Members No Information
--- OUTSIDE RECORDS SUMMARY | 2007-02-05 04:56 | XMS_ITS | Continuity of Care Document ---
Author Organization [facility] Address [address] [place] [address] [address] [place] [address] Phone Care Team Providers Care Learning Administrator Name Role Phone Darin Hillman Unavailable Unavailable Procedures Procedure Date Eye Exam Established Pt Advance Directives Directive Yes / No Effective Date File Name No Information Encounters Encounter Description Practice Location Reason(s) For Visit Diagnoses Date Provider Providers Copied on Encounter formerly [facility], [address] [place] [address] [address], [place], [place], [id number], [place] tel:[phone] [facility] No Information [address] , [address], [place], [address], [place]. tel:[phone] Family History Family Member Type Diagnosis Age At Onset No Information Payers Payer name Insurance type Covered constitution party ID Authoriza tion(s) No Information Social [...]
--- NOTE | ~2024-12-09 | XR_ITS ---
EXAMINATION: XR abdomen/kub 1V, 12/09/2024 17:20 CDT HISTORY: left flank pain COMPARISON: No comparisons available. Technique: 3 view. Findings: Moderate fecal content, no dilated bowel loops. No free air. No abnormal calcifications No acute osseous abnormality. Impression: 1. No acute abnormality. Reviewed, dictated and finalized at location A. Impression: 1. No acute abnormality.
--- OUTSIDE RECORDS SUMMARY | 2024-12-09 16:58 | XMS_ITS | Encounter Summary ---
Author Organization [facility] Address [address] [place] [address] Care Team Providers Care Assurance Associate Name Role Phone Ta Piedra MD Unavailable Yemi Bell MD Unavailable [phone] Lori Lima NP Primary Care Provider Encounter Details Date Type Department Care Team (Late st Contact Info) Description 11/10/2024 Results Follow-Up [facility] Family Medicine [address] [facility] [address] [place] [address] Lori Lima NP [address] [facility] [address] [place] [address] TSH Social History Tobacco Use Types Packs/Day Years Used Date Smoking Tobacco: Never Smokeless Tobacco: Never Alcohol Use Standard Drinks/Week Comments Never 0 [...] on file 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 Gender Identity Not on file Sexual Orientation Not on file documented as of this encounter Plan of Treatment Not on file documented as of this encounter Visit Diagnoses Not on filedocumented in this encounter Care Teams Assurance Associate Relationship Specialty Start Date End Date Lori Lima SUPERVISOR CEREAL [address] [place] [address] PCP - General Internal Medicine 09/22/24 Ta Piedra MD [address] [place] [address] Referring Physician Otolaryngology 04/29/19 Yemi Bell MD [address] [place] [address] Referring Physician Obstetrics and Gynecology 10/23/23 documented as of this encounter
--- OUTSIDE RECORDS SUMMARY | 2024-12-09 16:58 | XMS_ITS | Clinical Summary ---
Author Organization [facility] Address [address] [place] [address] Care Team Providers Care Supervisor Mattress And Boxsprings Name Role Phone Chiki Santos MD Primary Care Provider [phone] Social History Tobacco Use Types Packs/Day Years [...] 30 to 64) Every 3 Years 1979 Colorectal Cancer Screening Colonoscopy (10 Years) 1979 Annual Physical 11/15/1982 Hepatitis C 11/15/1997 [...] Screening 2019 COVID-19 Vaccine (2023-2 5 season) 2024 Meningococcal B Vaccine Aged Out No l [...] age to complete this topic Care Teams Supervisor Mattress And Boxsprings Relationship Specialty Start Date End Date Chiki Santos MD PCP - General 07/20/13
--- OUTSIDE RECORDS SUMMARY | 2024-12-09 16:58 | XMS_ITS | Clinical Summary ---
Author Organization [facility] Address [address] [place] [address] Care Team Providers Care Procedure Manager Name Role Phone Unavailable Primary Care Provider Unavailabl e Allergies No known active allergies Medications levothyroxine 150 mcg tablet Take 150 mcg by mouth daily. 01/27/2024 Active propranoloL (INDERAL LA) 60 mg Long Acting 24 hour capsule Take 60 mg by mouth daily. 10/22/2022 Active progesterone micronized (PROMETRIUM) 100 mg Capsule TAKE 1 CAPSULE BY MOUTH EVERY DAY AT BEDTIME 09/16/2024 Active Active Problems No known active problems Encounters Date Type Department Care Team Description 10/20/2024 External Device Data STL ABSTRACTION Provider, Abstract 10/08/2024 Orders Only [facility] and [facility] [address] [place] [address] Arian Hdz MD 10/07/2024 2:30 PM CDT Office Visit [facility] [address] [place] [address] Arian Hdz MD Reactive thrombocytosis (Primary Dx) 09/30/2024 External Device Data STL ABSTRACTION Provider, [...] Sign Reading Time Taken Comments Blood Pressure 114/67 10/07/2024 2:19 PM CDT Pulse 85 10/07/2024 2:19 PM CDT Temperature 36.6 C (97.8 F) 10/07/2024 2:19 PM CDT Respiratory Rate 16 10/07/2024 2:19 PM CDT Oxygen Saturation 95% 10/07/2024 2:19 PM CDT Inhaled Oxygen Concentration - - Weight 105.1 kg (231 lb 9.6 oz) 10/07/2024 2:19 PM CDT Height 185.4 cm (6' 1) 02/12/2024 10:2 4 AM PERCH MACHINE INSPECTOR Body Mass Index 30.56 02/12/2024 10:24 AM PERCH MACHINE INSPECTOR Plan of Treatment Upcoming Encounters Date Type Department Care Team (Late st Contact Info) Description 04/08/2025 3:30 PM PERCH MACHINE INSPECTOR Office Visit [facility]cology and H[facility]ology - [place] [address] [facility] [address] [place] [address] Arian Hdz MD [address] [facility] [address] [place] [address] Health Maintenance Due Date Last Done Comments Pre-Diabetes and Diabetes Screening 1979 HEPATITIS B VACCINES (1 of 3 - 19+ 3-dose series) 11/15/1998 HPV/Cotest (21-29) 11/15/2000 HPV VACCINES (1 - 3-dose SCD M series) 11/15/2006 CERVICAL CANCER SCREENING 11/15/2009 HPV/Cotest (30-65) 11/15/2009 PAP SMEAR 11/15/2009 BREAST CANCER SCREENING 2019 INFLUENZA VACCINE (#1) 2024 9, 01/07/2017, 01/05/2016, Additional history exists COLORECTAL SCREENING 11/15/2024 Colorectal Cancer Screening 11/15/2024 FIT-DNA Q 3 years 11/15/2024 FIT/FOBT Q 1 year 11/15/2024 Flex Sig/CT Colonography Q 5 years 11/15/2024 DTAP/TDAP/TD VACCINES (2 - T d or Tdap) 04/13/2026 04/13/2016 Procedures Procedure Name Priority Date/Time Associated Diagnosis Comments CBC WITH AUTODIFFERENTIAL Routine 2024 1:24 PM CDT from Last 3 Months Results * CBC WITH AUTODIFFERENTIAL (10/07/2024 1:24 PM CDT) Blood us Arian Hdz MD HEMATOLOGY ORDERABLES Final Res ult from Last 3 Months Insurance [facility] CHO[facility] [id number] [place] [id number]
--- OUTSIDE RECORDS SUMMARY | 2024-12-09 16:58 | XMS_ITS | Clinical Summary ---
Author Organization [facility] Address [address] [place] [address] Care Team Providers Care Skeins Yarn Examiner Name Role Phone Unavailable Primary Care Provider Unavailabl e Source Comments [facility],non-owned Affiliates and Associated Physician Practices is amultiple site organization consisting of ambulatory clinics and hospital sitesin [place], [place] and [place]. This disclosure is being madepursuant to the Care Everywhere program and may not contain all information available regarding this patient. 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 Gender Identity Not on file Sexual Orientation [...] Health Maintenance Due Date Last Done Comments COLOGUARD (AGES 45-75) - COL ON CA SCREENING 1979 CT COLONOGRAPHY - COLON CA SCREENING 1979 FIT - COLON CA SCREENING 1979 FLEX SIG - COLON CA SCREENING 1979 LIPID TESTING 1979 MAMMOGRAM 1979 HIV SCREENING 11/15/1994 HEPATITIS C SCREENING 11/11/1997 DTAP/TDAP/TD VACCINES (1 - Tdap) 11/15/1998 HEPATITIS B VACCINE (1 of 3 - 19+ 3-dose series) 11/15/1998 PAP SMEAR 11/15/2000 HPV VACCINE (1 - 3-dose SCDM series) 11/15/2006 SCREENING FOR DIABETES 07/13/2020 02/18/2010 DEPRESSION SCREENING 03/18/2024 COVID-19 VACCINE (1 - 2023-2 5 season) 2024 INFLUENZA VACCINE (#1) 2024 ZOSTER VACCINE (1 of 2) 11/15/2029 COLON MONITORING 06/08/2030 06/08/2020, 06/08/2020 COLONOSCOPY - COLON CA SCREENING 06/08/2030 06/08/2020, 06/08/2020 Colorectal Cancer Screening 06/08/2030 HIB VACCINE Aged Out No longer eligi ble based on patient's age to complete this topic MENINGOCOCCAL (Group B) VACCINE SHARED DECISION-MAKING Aged Out No longer eligible based on patient's age to complete this topic MENINGOCOCCAL GROUPS A/C/Y/W VACCINE Aged Out No longer eligible b ased on patient's age to complete this topic PNEUMOCOCCAL VACCINE Aged Out No long er eligible based on patient's age to complete this topic Procedures Procedure Name Priority Date/Time Associated Diagnosis Comments ENDOSCOPY, COLON, DIAGNOSTIC Routine 06/08/2020 10:00 AM CDT COMPREHENSIVE METABOLIC PANEL STAT 02/18/2010 8:10 PM INVENTORY WORKER from Last 3 Months or Most Recently Relevant to Health Maintenance Results * ENDOSCOPY, COLON, DIAGNOSTIC (06/08/2020 10:00 AM CDT) Report Endoscopy POC Endoscopy Department Report _ Patient Name: Clare Stephenson Procedure Date: 06/08/2020 10:00 AM Date [...] bowel preparation was evaluated using the BBPS ([place] Bowel Preparation Scale) with scores of: Right [...] non-roach portions. Procedure Code(s): --- Professional --- 12245, Colonoscopy, flexible; with biopsy, single or multiple Diagnosis Code(s): --- Professional --- K64.4, Residual hemorrhoidal skin tags K64.8, Other hemorrhoids K63.5, Polyp of colon K63.89, Other specified diseases of intestine CPT copyright 2019 [employer]. All rights reserved. The codes documented in this report are preliminary and upon customs port director review may be revised to meet current compliance requirements. ____ Arabella Gillette MD 06/08/2020 11:12:07 AM Note Initiated On: 06/08/2020 10:00 AM Number of Addenda: [address] [address] [facility] 06/08/2020 10:0 0 AM CDT us Arabella Castillo MD GI PROCEDURE ORDERABLES E dited Result - Final [facility] * (ABNORMAL) COMPREHENSIVE METABOLIC PANEL (02/18/2010 8:10 PM INVENTORY WORKER) Glucose 99. 65 - 105 mg/dL [facility] BUN 6.(L) 7 - 18 mg/dL [facility] Creatinine .66 0.50 - 1.05 mg/dL [facility] BUN/Creatinine Ratio 8.7 [facility] Sodium 135.(L) 137 - 145 mmol/L [facility] Potassium 3.5(L) 3.6 - 5.0 mmol/L [facility] Chloride 103. 98 - 107 mmol/L [facility] CO2 22. 22 - 31 mmol/L [facility] Anion Gap 10. [facility] Calcium 8.7 8.4 - 10.6 mg/dL [facility] Alkaline Phosphatase 60. 38 - 126 U/L [facility] ALT 13. 7 - 56 U/L [facility] AST 24. 5 - 40 U/L [facility] Bilirubin Total < .1(L) 0.2 - 1.3 mg/dL [facility] Protein Total 7.7 6.3 - 8.2 gm/dL [facility] Albumin 4.2 3.9 - 5.0 gm/dL [facility] eGFR by MDRD >60 SEE BELOW ml/min/1.7 3 m2 [facility] Comment: >60 Normal Chronic Disease <60 Renal Failure <15 BLOOD SPECIMEN / Unknown 02/18/2010 8:10 PM INVENTORY WORKER 02/18/2010 8:16 PM INVENTORY WORKER Narrative [facility] - 02/18/2010 8:41 PM INVENTORY WORKER Perform for patients with UPPER abd* us Fernie D Beck [facility] - CHEMISTRY ORDERABLES Final Result [facility] [address] [place] [address] from Last 3 Months or Most Recently Relevant to Health Maintenance Insurance [employer] [place] [address] [facility] Member Subscriber Plan / Payer (Ef fective 2018-Present) Name:Clare Stephenson Relation to Subscriber:Spouse Name:EZIO STEPHENSON Subscriber ID:Not on file Date of :1979 (Home) Address: [address] [place] [address] Payer ID:[id number] (NAIC) Type:PPO Address: [place] [phone] [facility] Member Subscriber Plan / Payer (Ef fective 2024-) Name:Clare Stephenson Relation to Subscriber:Self Name:Clare Stephenson Payer ID:[id number] (NAIC) Type:PPO Address: [place] [phone]
--- OUTSIDE RECORDS SUMMARY | 2024-12-09 16:58 | XMS_ITS | Encounter Summary ---
Author Organization [facility] Address [address] [place] [address] Care Team Providers Care Ferry Terminal Agent Name Role Phone Unavailable Primary Care Provider Unavailabl e Reason for Visit * Reason Onset Date Comments Returned Call 06/29/2020 Encounter Details Date Type Department Care Team (Late st Contact Info) Description 06/29/2020 Telephone [facility] - GI [address] [place] [address], [facility] [place] [address] Arabella Castillo MD [address] [place] [address] [place] [address] Returned Call Social History Tobacco Use Types Packs/Day Years Used Date Smoking Tobacco: Never Smokeless Tobacco: Never Alcohol Use Standard Drinks/Week Comments Yes 0 (1 standard drink = 0.6 oz pur e alcohol) socially Comments No Sex and Gender Information Value Date Recorded Sex Assigned at Not on file 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 Arabella Craig MD Auto Transmission Specialist Internal Medicine Division of Gastroenterology and Hepatology documented in this encounter Plan of Treatment Not on file documented as of this encounter Visit Diagnoses Not on filedocumented in this encounter
--- OUTSIDE RECORDS SUMMARY | 2024-12-09 16:59 | XMS_ITS | Clinical Summary ---
Author Organization [facility] Address [address] [place] [address] Care Team Providers Care Weave Defect Charting Clerk Name Role Phone Ta Piedra MD Unavailable [phone] Yemi Bell MD Unavailable [phone] Lori Lima NP Primary Care Provider [phone] Allergies Active Allergy Reactions Criticality Noted Date Comments Tolterodine Other (See comments) Low 10/22/2022 Severe dry eye Medications Restasis 0.05 % ophthalmic emulsion 1 drop 2 (two) times a day 09/02/19 25 Active estradioL (ESTRACE) 0.01 % (0.1 mg/gram) vaginal cream APPLY 1 GRAM TO VULVA AND VAGINA NIGHTLY FOR 2 WEEKS THEN REDUCE TO 2 TO 3 TIMES PER WEEK THEREAFTER 08/20/19 25 Active progesterone (PROMETRIUM) 100 mg capsule TAKE 1 CAPSULE BY MOUTH EVERY DAY AT BEDTIME 09/17/19 25 Active doxycycline (DORYX) 100 mg EC tablet Take 1 tablet (100 mg total) by mouth 2 (two) times a day Active levothyroxine (SYNTHROID) 125 mcg tabletIndicati ons:Hypothyroi dism (acquired) Take 1 tablet (125 mcg total) by mouth daily 90 tablet 11/11/19 25 Active levothyroxine (SYNTHROID) 150 mcg tabletIndicati ons:Hypothyroi dism (acquired) Take 1 tablet (150 mcg total) by mouth director of early childhood before breakfast 90 tablet 1 09/23/19 25 025 Discontinued Active Problems Problem Noted Date Diagnosed Date [...] Encounters Date Type Department Care Team Description 11/10/2024 Orders Only [address] [place] [phone] Lori Lima, NICHOLAS Hypothyroidism (acquired) (Primary Dx) 11/10/[address] [place] [address] Lori Lima, NICHOLAS 11/10/2024 Results Follow-Up [address] [place] [phone] Lori Lima, NICHOLAS TSH 09/22/2024 11:30 AM CDT Office Visit [address] [place] [address] Lori Lima NP Hypothyroidism (acquired) (Primary [...] on file Legal Sex Female 6:19 PM 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 Gender Identity Not on file Sexual Orientation Not on file Obstetrics History Last Filed Vital Signs Vital Sign Reading Time Taken Comments Blood Pressure 122/80 09/22/2024 11:26 AM CDT Pulse 75 09/22/2024 11:26 AM CDT Temperature 36.9 C (98.5 F) 09/22/2024 11:26 AM CDT Respiratory Rate 18 04/10/2024 4:17 PM TAIL SAWYER Oxygen Saturation 97% 09/22/2024 11:26 AM CDT Inhaled Oxygen Concentration - - Weight 104.8 kg (231 lb) 09/22/2024 11:26 AM CDT Height 185.4 cm (6' 1) 09/22/2024 11:26 AM CDT Body Mass Index 30.48 09/22/2024 11:26 AM CDT Plan of Treatment Health Maintenance Due Date Last Done Comments Breast Cancer Screening-Mammogram 1980 Cervical Cancer Screening 1979 HPV Vaccines (1 - 3-dose SCDM series) 11/15/2006 Regular Well Visit/Exam 18-64 10/22/2024 10/23/2023, 10/22/2022, 10/02/2021 Covid-19 Vaccine ( season) 2024 04/01/2021, 07/19/2020, 06/15/2020 Influenza Vaccine (#1) 2024 9, 01/07/2017, 01/05/2016, Additional history exists Colon Cancer Screening-Colonoscopy 06/09/2025 06/09/2020 Depression Screening 09/22/2025 09/22/2024, 10/23/2023, 10/22/2022, Additional history exists DTaP/Tdap/Td Vaccine (2 - Td or Tdap) 04/13/2026 04/13/2016 Hepatitis B Screening Completed 10/24/2023 Hepatitis C Screening Completed 10/24/2023 Pneumococcal vaccine <65 Aged Out No longer eligible based on patient's age to complete this topic Procedures Procedure Name Priority Date/Time Associated Diagnosis Comments TSH Routine 10/31/2024 11:02 AM CDT Hypothyroidism (acquired) HEPATITIS C ANTIBODY Routine 10/24/2023 9:09 AM CDT Annual physical exam Encounter for hepatitis C screening test for low risk patient HM COLONOSCOPY Routine 06/09/2020 Routine physical examination from Last 3 Months or Most Recently Relevant to Health Maintenance Results * (ABNORMAL) TSH (10/31/2024 11:02 AM CDT) TSH 0.05(L) mIU/L [facility] Comment: Reference Range > or = 20 Years 0.40-4.50 Ranges First trimester 0.26-2.66 Second trimester 0.55-2.73 Third trimester 0.43-2.91 Blood 10/31/2024 11:0 2 AM CDT 10/31/2024 11:03 AM CDT Lori Lima SENIOR DOT NET DEVELOPER LAB BLOOD ORDERABLES Final Re sult [facility] [address] [place] [address] * Hepatitis C antibody Blood (10/24/2023 9:09 AM CDT) Hep C Ab NON-REACTI VE NON-REACT CATHI [facility] Comment: HCV antibody was non-reactive. There is no laboratory evidence of HCV infection. In most cases, no further action is required. However, if recent HCV exposure is suspected, a test for HCV RNA (test code 89639) is suggested. For additional information please refer to http://[email or web address].Beam Express/faq/DJZ94o3 (This link is being provided for informational/ educational purposes only.) Blood 10/24/2023 9:09 AM CDT 10/24/2023 9:10 AM CDT Narrative [facility] - 10/25/2023 7:48 AM CDT FASTING:YES FASTING: YES Leila Tam MD LAB MICROBIOLOGY - GEN ERAL ORDERABLES Final Result [facility] [address] [phone] * COLONOSCOPY (06/09/2020) Scribed Colonoscopy Abnormal Comment:see pathology and co lonoscopy reprot in Care Everywehre from [facility] 06/09/2020 Historical Provider HEALTH MAINTENANCE Final Result from Last 3 Months or Most Recently Relevant to Health Maintenance Insurance [facility]/PPO Address: [facility] [address] [place] [phone] [facility] HMO/PPO Address: [address] [address] [facility] HMO/PPO Address: [address] [place], [place] [phone] Care Teams Weave Defect Charting Clerk Relationship Specialty Start Date End Date Lori Lima NP [address] [facility] [address] [place], [place] [id number] PCP - General Internal Medicine 09/22/24 Ta Piedra MD [address] [place] [address] Referring Physician Otolaryngology 04/29/19 Yemi Bell MD [address] [id number] Referring Physician Obstetrics and Gynecology 10/23/23
[2024-12-09 17:05] VITALS: BP 125/77; PULSE 67; RESP 18; TEMP 36.6; O2SAT 100
--- NOTE | 2024-12-09 17:12 | ED.BACK ---
HPI - Back Pain/Injury General Chief Complaint: Back Pain/Injury Stated Complaint: pain left side lower back Time Seen by Provider: 12/09/24 17:13 Source: patient and RN notes reviewed Mode of arrival: ambulatory Limitations: no limitations History of Present Illness HPI Narrative: 44-year-old female presents with concern for left flank pain. She reports it is sharp and stabbing and intermittent. She denies any exacerbating or relieving factors. It is not dependent on movement. She denies dysuria, frequency, urgency, hematuria. She denies weakness in any extremity. She denies loss of bowel or bladder function or perianal anesthesia. She denies abdominal pain, fever, nausea, vomiting. Reports symptoms started last night. She reports she had pneumonia about a month ago but those symptoms have resolved. MD elicited complaint: back pain Related Data Home Medications ?Medication ?Instructions ?Recorded ?Confirmed ?Last Taken ?Type levothyroxine 150 mcg tablet 150 mcg PO DAILY 01/09/23 12/09/24 Unknown History propranolol 60 mg capsule,24 60 mg PO DAILY 01/09/23 12/09/24 Unknown History hr,extended release albuterol sulfate 90 mcg/actuation inhalation 12/09/24 Unknown History aerosol inhaler cyclosporine 0.05 % eye drops in a drp 12/09/24 Unknown History dropperette (Restasis) estradiol 0.01% (0.1 mg/gram) vaginal 12/09/24 Unknown History vaginal cream progesterone micronized 100 mg mg 12/09/24 Unknown History capsule Allergies Allergy/AdvReac Type Severity Reaction Status Date / Time No Known Allergies Allergy Mild Verified 12/09/24 17:03 Review of Systems Review of Systems: CONSTITUTIONAL: Denies malaise, chills, sweats, or fever. CARDIOVASCULAR: Denies chest pain, palpitations, or edema. RESPIRATORY: Denies cough or dyspnea. GASTROINTESTINAL: Denies abdominal pain, nausea, vomiting, diarrhea, loss of bowel function GENITOURINARY: Denies dysuria, hematuria, frequency, loss of bladder function. SKIN: Denies rash or itching. MUSCULOSKELETAL: Reports left mid back pain NEUROLOGIC: Denies numbness, weakness, or headache. All systems reviewed & are unremarkable except as noted in HPI and below PMFSH Past Medical History Medical History (Updated 12/09/24 @ 17:40 by Yvonne S. Hilmes, RURAL CARRIER ASSOCIATE) Hypothyroidism Surgical History Surgical History History of appendectomy History of delivery History of tubal ligation Social History Social History Smoking status: Never smoker Alcohol intake: current Alcohol use details: 1/YEAR Substance use: never Substance use type: does not use Living arrangements: with family Spiritual care concerns: No Comments At time of signature, agree with nursing past medical, surgical, social and family history. There is no relevant family history pertinent to the presenting complaint Exam Narrative: GENERAL: Well-appearing, well-nourished, and in no acute distress. HEAD: Normocephalic, atraumatic. EYES: PERRLA and EOMI. NECK: Supple. No lymphadenopathy. CHEST: Clear to auscultation. No respiratory distress. HEART: Regular rate and rhythm. Distal pulses palpable and equal, cap refill <3 seconds ABDOMEN: Soft, nontender, nondistended, normal active bowel sounds, no palpable or pulsatile masses. No CVA tenderness MUSCULOSKELETAL: Normal range of motion and strength in all extremities; 5/5 strength with hip flexion and extension, dorsiflexion and extension, knee flexion and extension, plantar flexion and extension. Normal sensation in dermatomal distributions with sensitivity to light touch and pain. No midline back tenderness to palpation. No paraspinal tenderness. Transfers from lying to sitting to standing. Left CVA tenderness SKIN: Warm, dry, no rash. No ecchymosis, erythema, open wounds to back. NEURO: No focal deficits. Alert and oriented x3. Reflexes intact. Normal gait. PSYCH: Normal mood and affect Course Course Emergency Course: Patient is aware of diagnosis, understands and agrees to treatment plan. Anticipatory guidance given. Patient agrees to follow-up as directed and is aware of reasons to seek care at the emergency department. Portions of this record may have been created with voice recognition software Level of Care: Express Care Visit Vital Signs Vital signs: Vital Signs Temperature 97.9 F 12/09/24 17:05 Pulse Rate 67 12/09/24 17:05 Respiratory Rate 18 12/09/24 17:05 Blood Pressure 125/77 12/09/24 17:05 Pulse Oximetry 100 12/09/24 17:05 Oxygen Delivery Room Air 12/09/24 17:05 Temperature 97.9 F 12/09/24 17:05 Pulse Rate 67 12/09/24 17:05 Respiratory Rate 18 12/09/24 17:05 Blood Pressure 125/77 12/09/24 17:05 Pulse Oximetry 100 12/09/24 17:05 Oxygen Delivery Room Air 12/09/24 17:05 Reviewed. MDM - Back Pain/Injury MDM Narrative Medical decision making narrative: I evaluated this in the [facility] care. History is obtained from patient who is an independent historian and physical exam was performed.? Available medical records were reviewed. ? Exam findings and relevant testing show no acute concerns or changes; patient is non-toxic appearing and is in no distress. No risk factors or findings concerning for epidural abscess, diskitis, vertebral osteomyelitis, cord compression, cauda equina, vertebral fracture or bone malignancy, AAA, or pyelonephritis. Patient instructed to consider further imaging and workup through their primary care physician as an outpatient if symptoms persist. ? Differential diagnosis and treatment plan were discussed with the patient. Patient agrees with discussion and after shared medical decision making agrees with plan of care. All questions were answered to the patient's satisfaction. Patient's symptoms are consistent with nephrolithiasis, patient does not has symptoms consistent with typical musculoskeletal low back pain, abdominal pathology, or other concerning pathophysiology. Will treat presumptively for nephrolithiasis, refer to urology. Patient was given instructions to go to the emergency room if her symptoms worsen or do not improve. Patient is appropriate for outpatient treatment and follow-up. Imaging Data My impression: Images reviewed, interpreted by radiologist, agree, see report. Radiologist's impression: EXAMINATION: XR abdomen/kub 1V, 12/09/2024 17:20 CDT HISTORY: left flank pain COMPARISON: No comparisons available. Technique: 3 view. Findings: Moderate fecal content, no dilated bowel loops. No free air. No abnormal calcifications No acute osseous abnormality. Impression: 1. No acute abnormality. Critical Care Time Critical Care Time Critical Care Time: No Discharge Plan Discharge Clinical Impression: Acute flank pain Patient Disposition: Home Condition: Stable Instructions: How to Strain Your Urine (ED) Additional Instructions: 1) Please follow-up with urology tomorrow. 2) If you have any worsening of symptoms or any other urgent concerns please go to the ER. 3) Please take medications as prescribed and continue taking your home medications as usual. 4) Please read and follow information included in discharge instructions. Patient Language: Romansh Prescriptions: New tamsulosin [Flomax] 0.4 mg capsule 0.4 mg PO DAILY Qty: 5 0RF hydrocodone-acetaminophen 5-325 mg tablet 1 tablet PO Q6H PRN (Reason: pain) Qty: 8 0RF ondansetron 4 mg tablet,disintegrating 4 mg PO Q6H PRN (Reason: nausea and vomiting) Qty: 4 0RF No Action estradiol 0.01 % (0.1 mg/gram) cream VAGINAL albuterol sulfate 90 mcg/actuation HFA aerosol inhaler INHALATION progesterone micronized 100 mg capsule cyclosporine [Restasis] 0.05 % dropperette propranolol 60 mg capsule,extended release 24 hr 60 mg PO DAILY levothyroxine 150 mcg tablet 150 mcg PO DAILY Follow-up/Referrals: Clarence,NICHOLAS Sandoval [Primary Care Provider, Unknown] Fan Macias MD [Physician, Urology] Time of Disposition: 17:43
[2024-12-09 17:34] LABS: EDUAAPPEAR Clear; EDUABILI Negative (Negative); EDUABLOOD Negative (Negative); EDUACOLOR1 Yellow; EDUAGLUCOSE Negative (Negative); EDUAKETONE Negative (Negative); EDUALEUKO Negative (Negative); EDUANITRATE Negative (Negative); EDUAPH 6.0; EDUAPROTEIN Negative (Negative); EDUASPGRAVITY 1.015; EDUAUROBILI 0.2
== END 2024-12-09 17:44 | disposition home or self-care (01) ==
PROVIDERS: Emergency Provider Nurse Practitioner; PCP Nurse Practitioner Family
DX: R10.9 Unspecified abdominal pain (principal); E03.9 Hypothyroidism, unspecified
CPT/HCPCS: 74018; 81003; 99213; G0463

== ENCOUNTER 2025-03-15 14:28 | Outpatient (CLI) | payer OTHER, SELFPAY ==
--- NOTE | ~2025-03-15 | MM_ITS ---
EXAMINATION: MM screening luis carlos BI w bar HISTORY: Screening. TECHNIQUE: Craniocaudal and mediolateral oblique 3-D tomosynthesis images were obtained and synthetic 2-D images were generated. CAD analysis was submitted and interpreted. COMPARISON: 2023 and 2022 BREAST PARENCHYMAL COMPOSITION: Dense: The breasts are heterogeneously dense, which may obscure small masses. FINDINGS: No suspicious masses are seen. There are no suspicious calcifications. No unexplained architectural distortion is seen. There are no skin or nipple abnormalities identified. There is no adenopathy seen on the images submitted. IMPRESSION: No mammographic evidence to suggest malignancy is seen. The patient may return to screening mammography as per ACR guidelines. BI-RADS 1 - Negative. Reviewed, dictated and finalized at location C. SION SUPERINTENDENT
== END 2025-03-15 14:29 | disposition home or self-care (01) ==
LOC: MICIMG 14:29
PROVIDERS: PCP Nurse Practitioner Family; Visit Provider Nurse Practitioner Family
DX: Z12.31 Encounter for screening mammogram for malignant neoplasm of breast (principal)
CPT/HCPCS: 77063; 77067